=== PATIENT | female | born 1980 | race Caucasian/White ===

== ENCOUNTER 2016-12-28 16:54 | Inpatient (IN) | payer BC ==
[~2016-12-28] VITALS: Ht 162.6 cm; Wt 172.4 kg
[~2016-12-28 16:54] MED LIST: AMOX1TAB11 PO; FLUC100T7 PO; PRED-220 PO; PROAIR HFA8.5 GM INH; TRIA15CR3 TP
[2016-12-28] MEDS ORDERED: HYDROcodone/APAP 5/325MG 1 TAB TABLET PO ONE (17:45)
--- NOTE | 2016-12-28 19:13 | PHYS DOC ---
Past Medical History Past Medical History: Other Additional Past Medical Histor: LYMPHEDEMA (BILATERAL LOWER EXT), LIPIDEMA ( BILATERAL LOWER EXT) Past Surgical History: , Other Additional Past Surgical Histo: D&C, ANKLE Additional Information: quit smoking 12 years ago Alcohol Use: None Drug Use: None Adult General Chief Complaint Chief Complaint: WOUND CHECK [facility] Patient is a 36 year old female history of lymphedema who presents with increased leg swelling and weeping for the past several days. Patient was evaluated by her primary care physician this in 3 days prior to ED arrival. She states that since that time, her legs have continued to weep and that she is soaking through her gauze and has been been going through to 9 APD pads at time and that her legs are painful. Patient also notes that wounds are breaking open due to the ED. She is currently on doxycycline for prophylaxis. Patient gas history of leg cellulitis and has previously been admitted to this facility for sepsis related to leg wounds. She denies fever, chills, nausea, sweats. She is nondiabetic. Patient has been seen by the lymphedema clinic, Review of Systems Review of Systems ROS as per HPI Current Medications Current Medications Current Medications Medications (Trade) Dose Ordered Sig/Uvaldo Start Time Stop Time Status Last Admin Dose Admin Acetaminophen/ Hydrocodone Bitart (Lortab 5/325) 1 tab 1X ONCE 12/28/16 17:45 12/28/16 17:46 DC 12/28/16 18:11 1 TAB Fentanyl Citrate (Fentanyl 2ml Vial) 75 mcg 1X ONCE 12/28/16 19:30 12/28/16 19:31 DC 12/28/16 19:37 75 MCG Ondansetron HCl (Zofran) 4 mg 1X ONCE 12/28/16 19:30 12/28/16 19:31 DC 12/28/16 19:34 4 MG Allergies Allergies Allergies Coded Allergies Type Severity Reaction Last Updated Verified No Known Drug Allergies 04/05/15 No Physical Exam Physical Exam Constitutional: Well developed, well nourished, no acute distress, non-toxic appearance. [] HENT: Normocephalic, atraumatic, bilateral external ears normal, oropharynx moist, no oral exudates, nose normal. [] Eyes: PERRLA, EOMI, conjunctiva normal, no discharge. [] Neck: Normal range of motion, no tenderness, supple, no stridor. [] Cardiovascular:Heart rate regular rhythm, no murmur [] Lungs & Thorax: Bilateral breath sounds clear to auscultation [] Abdomen: Bowel sounds normal, soft, no tenderness, no masses, no pulsatile masses. [ Extremities: Severe lymphedema of B lower extremities with folds overlapping ankle, patient with serous weeping, multiple subcentimeter stasis wounds purulent drainage, induration or streaking. Left medial leg 2 cm stasis ulcer with surrounding erthyema. ] Neurologic: Alert and oriented X 3, normal motor function, normal sensory function, no focal deficits noted. [] Psychologic: Affect normal, judgement normal, mood normal. [] Current Patient Data Vital Signs Vital Signs Date Time Temp Pulse Resp B/P (MAP) Pulse Ox O2 Delivery O2 Flow Rate FiO2 12/28/16 19:37 19 100 Room Air 12/28/16 19:35 97 134/70 (91) 12/28/16 17:08 98.2 98.2 Lab Values Laboratory Tests Test 12/28/16 17:22 12/28/16 19:17 POC Urine HCG, Qualitative Hcg negative (Negative) White Blood Count 8.2 x10^3/uL (4.0-11.0) Red Blood Count 3.84 x10^6/uL (3.50-5.40) Hemoglobin 11.3 g/dL (12.0-15.5) L Hematocrit 33.1 % (36.0-47.0) L Mean Corpuscular Volume 86 fL (79-100) Mean Corpuscular Hemoglobin 30 pg (25-35) Mean Corpuscular Hemoglobin Concent 34 g/dL (31-37) Red Cell Distribution Width 14.3 % (11.5-14.5) Platelet Count 179 x10^3/uL (140-400) Neutrophils (%) (Auto) 65 % (31-73) Lymphocytes (%) (Auto) 25 % (24-48) Monocytes (%) (Auto) 7 % (0-9) Eosinophils (%) (Auto) 2 % (0-3) Basophils (%) (Auto) 1 % (0-3) Neutrophils # (Auto) 5.3 x10^3uL (1.8-7.7) Lymphocytes # (Auto) 2.0 x10^3/uL (1.0-4.8) Monocytes # (Auto) 0.6 x10^3/uL (0.0-1.1) Eosinophils # (Auto) 0.2 x10^3/uL (0.0-0.7) Basophils # (Auto) 0.1 x10^3/uL (0.0-0.2) Sodium Level 142 mmol/L (136-145) Potassium Level 4.1 mmol/L (3.5-5.1) Chloride Level 106 mmol/L (98-107) Carbon Dioxide Level 27 mmol/L (21-32) Anion Gap 9 (6-14) Blood Urea Nitrogen 15 mg/dL (7-20) Creatinine 1.1 mg/dL (0.6-1.0) H Estimated GFR (Cockcroft-Gault) 56.2 BUN/Creatinine Ratio 14 (6-20) Glucose Level 83 mg/dL (70-99) Calcium Level 8.4 mg/dL (8.5-10.1) L Total Bilirubin Pending Aspartate Amino Transferase (AST) Pending Alanine Aminotransferase (ALT) Pending Alkaline Phosphatase Pending C-Reactive Protein, Quantitative 20.4 mg/L (0-3.3) H Total Protein Pending Albumin Pending Albumin/Globulin Ratio Pending Laboratory Tests 12/28/16 19:17 Laboratory Tests 12/28/16 19:17 EKG EKG [] Radiology/Procedures Radiology/Procedures [] Course & Med Decision Making Course & Med Decision Making Pertinent Labs and Imaging studies reviewed. (See chart for details) [Chronic lymphedema with cellulitis and left leg venous stasis ulcer currently failed outpatient antibiotic. Vital signs stable, Normal WBC, Patient does not appear to be septic. Empiric abx given ] Dragon Disclaimer Dragon Disclaimer This electronic medical record was generated, in whole or in part, using a voice recognition dictation system. Departure Departure Impression: Primary Impression: Cellulitis Additional Impression: Lymph edema Disposition: 09 ADMITTED INPATIENT Admitting Physician: Jack Fierro Condition: GOOD Referrals: HARMONY SAMUEL MD (PCP) Problem Qualifiers NEALJACQUES FINCH Dec 28, 2016 19:13
[2016-12-28 19:24] LABS: BASO # 0.1 x10^3/uL (0.0-0.2); BASO % 1 % (0-3); EOS % 2 % (0-3); HEMATOCRIT 33.1 % (36.0-47.0); HEMOGLOBIN 11.3 g/dL (12.0-15.5); LYMPH % 25 % (24-48); MEAN CORPUSCULAR HEMOGLOBIN 30 pg (25-35); MEAN CORPUSCULAR HGB CONC 34 g/dL (31-37); MEAN CORPUSCULAR VOLUME 86 fL (79-100); MONO % 7 % (0-9); NEUT % 65 % (31-73); PLATELET COUNT 179 x10^3/uL (140-400); RED BLOOD COUNT 3.84 x10^6/uL (3.50-5.40); RED CELL DISTRIBUTION WIDTH 14.3 % (11.5-14.5); WHITE BLOOD COUNT 8.2 x10^3/uL (4.0-11.0)
[2016-12-28] MEDS ORDERED: ONDANSETRON PF 4 MG/2 ML VIAL. IV ONE (19:30)
[2016-12-28] MEDS ORDERED: fentaNYL PF VIAL 100 MCG/2 ML VIAL IV ONE (19:30)
[2016-12-28 19:38] LABS: CALCIUM 8.4 mg/dL (8.5-10.1); CREATININE 1.1 mg/dL (0.6-1.0); GFR 56.2; POTASSIUM 4.1 mmol/L (3.5-5.1)
[2016-12-28 19:44] LABS: ALBUMIN 3.7 g/dL (3.4-5.0); ALBUMIN/GLOBULIN RATIO 0.9 (1.0-1.7); TOTAL BILIRUBIN 0.8 mg/dL (0.2-1.0); TOTAL PROTEIN 7.7 g/dL (6.4-8.2)
[2016-12-28] MEDS ORDERED: VANCOMYCIN 2 GM in IV NORMAL SALINE 500ML BAG 500 ML IV ONE (20:00)
[2016-12-28] MEDS ORDERED: VANCOMYCIN 1GM IVPB FOR OMNI 250 ML IV ONE (20:00)
[2016-12-28 22:45] VITALS: BP 109/66
[2016-12-28] MEDS ORDERED: ACETAMINOPHEN 325 MG TABLET. PO PRN (23:00)
[2016-12-28] MEDS: diphenhydrAMINE HCL 25 MG CAPSULE PO PRN (23:14)
[2016-12-28] MEDS: MORPHINE SULFATE 2 MG/ML DISP.SYRIN. IV PRN (23:17)
[2016-12-28] MEDS ORDERED: INFLUENZA VAX SCREEN BY RX. MC ONE (23:45)
[2016-12-28] MEDS ORDERED: PNEUMOCOCCAL VAX SCREEN BY RX. MC ONE (23:45)
[2016-12-29 03:00] VITALS: BP 107/58
[2016-12-29] MEDS: MORPHINE SULFATE 2 MG/ML DISP.SYRIN. IV PRN (04:21)
[2016-12-29 07:00] VITALS: BP 102/62
[2016-12-29] MEDS: VANCOMYCIN PER PHARMACY MC PRN ×2 (08:57→14:32)
--- NOTE | 2016-12-29 08:58 | PDOC1 ---
History and Physical Date of Admission Date of Admission DATE: 12/29/16 TIME: 08:58 Source Source: Chart review, Patient History of Present Illness History of Present Illness Ms. Harrington is a 36 year old female history of lymphedema who presents with increased leg swelling and weeping for the past several days. Severe 10/ 10 pain with any movment to the left leg, leg is swollen to over 12 inches across above ankle, she reports it measured 70cm circumference. She has 1 week of pain and swelling, was started on PO doxy 2 days prior, mult complaints of pain, pressure pain, but also stabbing pain, "feels deep" she has been unable to wrap due to swelling leg has new excoriations and has been weeping Past Medical History Cardiovascular: No pertinent hx Pulmonary: Asthma GI: No pertinent hx Heme/Onc: No pertinent hx Hepatobiliary: No pertinent hx Psych: No pertinent hx Infectious disease: No pertinent hx Renal/: No pertinent hx Endocrine: No pertinent hx Para: 4 Past Surgical History Past Surgical History: Other (ankle fracture, left with implanted hardware) Family History Family History single parent, is incarcerated, she has 2 jobs Family History: No Significant Social History Smoke: No ALCOHOL: none Drugs: None Current Problem List Problem List Problems Medical Problems: (1) Cellulitis Status: Acute (2) Lymph edema Status: Acute Problems: Current Medications Current Medications Current Medications Acetaminophen/ Hydrocodone Bitart (Lortab 5/325) 1 tab 1X ONCE PO Last administered on 12/28/16 18:11; Start 12/28/16 at 17:45; Stop 12/28/16 at 17:46 ; Status DC Fentanyl Citrate (Fentanyl 2ml Vial) 75 mcg 1X ONCE IV Last administered on 19:37; Start 12/28/16 at 19:30; Stop 12/28/16 at 19:31; Status DC Ondansetron HCl (Zofran) 4 mg 1X ONCE IV Last administered on 12/28/16 19:34 ; Start 12/28/16 at 19:30; Stop 12/28/16 at 19:31; Status DC Vancomycin HCl 250 ml @ 250 mls/hr 1X ONCE IV ; Start 12/28/16 at 20:00; Stop 12/28/16 at 20:59; Status UNV Vancomycin HCl 2 gm/Sodium Chloride 500 ml @ 250 mls/hr 1X ONCE IV Last administered on 12/28/16 20:17; Start 12/28/16 at 20:00; Stop 12/28/16 at 21:59 ; Status DC Acetaminophen/ Hydrocodone Bitart (Lortab 5/325) 1 tab PRN Q4HRS PRN PO PAIN; Start 12/28/16 at 23:00 Morphine Sulfate 2 mg PRN Q4HRS PRN IV PAIN Last administered on 12/29/16 04: 21; Start 12/28/16 at 23:00 Morphine Sulfate 4 mg PRN Q4HRS PRN IV PAIN; Start 12/28/16 at 23:00 Acetaminophen (Tylenol) 650 mg PRN Q6HRS PRN PO MILD PAIN / TEMP; Start at 23:00 Ondansetron HCl (Zofran) 4 mg PRN Q6HRS PRN IV NAUSEA/VOMITING; Start 12/28/16 at 23:00 Diphenhydramine HCl (Benadryl) 25 mg PRN Q6HRS PRN PO ITCHING Last administered on 12/28/16 23:14; Start 12/28/16 at 23:00 Info (Do NOT chart on this placeholder) 1 each 1X ONCE MC ; Start 12/28/16 at 23:45; Stop 12/28/16 at 23:46; Status UNV Pneumococcal Polyvalent Vaccine (Do NOT chart on this placeholder) 1 each 1X ONCE MC ; Start 12/28/16 at 23:45; Stop 12/28/16 at 23:46; Status UNV Influenza Virus Vaccine Quadrival (Fluarix Quad [id number] Syringe) 0.5 ml ONCE ONCE VAX IM ; Start 12/29/16 at 09:00; Stop 12/29/16 at 09:01 Pneumococcal Polyvalent Vaccine (Pneumovax 23) 0.5 ml ONCE ONCE VAX IM ; Start 12/29/16 at 09:00; Stop 12/29/16 at 09:01 Active Scripts Active Reported Proair Hfa Inhaler (Albuterol Sulfate) 8.5 Gm Hfa.aer.ad 1 Puff INH PRN Q6HRS PRN Allergies Allergies: Coded Allergies: No Known Drug Allergies (Unverified , 04/05/15) ROS General: YES: Fatigue, Appetite, No: Chills, Night Sweats, Malaise, Other PSYCHOLOGICAL ROS: YES: Sleep disturbances, No: Anxiety, Behavioral Disorder, Concentration difficultie, Decreased libido , Depression, Disorientation, Hallucinations, Hostility, Irritablity, Memory difficulties, Mood Swings, Obsessive thoughts, Other Eyes: No Blurry vision, No Decreased vision, No Double vision, No Dry eyes, No Excessive tearing, No Eye Pain, No Itchy Eyes, No Loss of vision, No Photophobia , No Scotomata, No Uses contacts, No Uses glasses, No Other HEENT: YES: Heacaches, No: Visual Changes, Hearing change, Nasal congestion, Nasal discharge, Oral lesions, Sinus pain, Sore Throat, Epistaxis, Sneezing, Snoring, Tinnitus, Vertigo, Vocal changes, Other Gastrointestinal: No Nausea, No Vomiting, No Abdominal Pain, No Diarrhea, No Constipation, No Melena, No Hematochezia, No Other Genitourinary: No Dysuria, No Frequency, No Incontinence, No Hematuria, No Retention, No Discharge, No Urgency, No Pain, No Flank Pain, No Other, No , No , No , No , No , No , No Musculoskeletal: Yes Gait Disturbance, Yes Joint Pain, Yes Joint Stiffness, Yes Joint Swelling Neurological: Yes Headaches, No Behavorial Changes, No Bowel/Bladder ControlChng, No Confusion, No Dizziness, No Gait Disturbance, No Impaired Coord/balance, No Memory Loss, No Numbness/Tingling, No Seizures, No Weakness, No Other Skin: No Dry Skin, No Eczema, No Hair Changes, No Lumps, No Mole Changes, No Mottling, No Nail Changes, No Pruritus, No Rash, No Skin Lesion Changes, No Other, No Acne Physical Exam General: Alert, Oriented X3, Cooperative HEENT: Atraumatic, EOMI Heart: S1S2, no gallops, no murmurs Abdomen: Normal bowel sounds, Soft Rectal Exam: deferred Extremities: Other (massive lymphedema, left, with redness, very tender) Skin: Other (redness, rash, excoriations over swelling) Neuro: Normal speech, Normal tone, Sensation intact Psych/Mental Status: Mood NL Vitals Vitals Vital Signs Date Time Temp Pulse Resp B/P (MAP) Pulse Ox O2 Delivery O2 Flow Rate FiO2 12/29/16 07:00 98.2 84 18 102/62 (75) 96 Room Air 98.2 Labs Labs Laboratory Tests Test 12/28/16 17:22 12/28/16 19:17 Bedside Urine HCG, Qualitative Hcg negative (Negative) White Blood Count 8.2 x10^3/uL (4.0-11.0) Red Blood Count 3.84 x10^6/uL (3.50-5.40) Hemoglobin 11.3 g/dL (12.0-15.5) Hematocrit 33.1 % (36.0-47.0) Mean Corpuscular Volume 86 fL (79-100) Mean Corpuscular Hemoglobin 30 pg (25-35) Mean Corpuscular Hemoglobin Concent 34 g/dL (31-37) Red Cell Distribution Width 14.3 % (11.5-14.5) Platelet Count 179 x10^3/uL (140-400) Neutrophils (%) (Auto) 65 % (31-73) Lymphocytes (%) (Auto) 25 % (24-48) Monocytes (%) (Auto) 7 % (0-9) Eosinophils (%) (Auto) 2 % (0-3) Basophils (%) (Auto) 1 % (0-3) Neutrophils # (Auto) 5.3 x10^3uL (1.8-7.7) Lymphocytes # (Auto) 2.0 x10^3/uL (1.0-4.8) Monocytes # (Auto) 0.6 x10^3/uL (0.0-1.1) Eosinophils # (Auto) 0.2 x10^3/uL (0.0-0.7) Basophils # (Auto) 0.1 x10^3/uL (0.0-0.2) Sodium Level 142 mmol/L (136-145) Potassium Level 4.1 mmol/L (3.5-5.1) Chloride Level 106 mmol/L (98-107) Carbon Dioxide Level 27 mmol/L (21-32) Anion Gap 9 (6-14) Blood Urea Nitrogen 15 mg/dL (7-20) Creatinine 1.1 mg/dL (0.6-1.0) Estimated GFR (Cockcroft-Gault) 56.2 BUN/Creatinine Ratio 14 (6-20) Glucose Level 83 mg/dL (70-99) Lactic Acid Level 1.7 mmol/L (0.4-2.0) Calcium Level 8.4 mg/dL (8.5-10.1) Total Bilirubin 0.8 mg/dL (0.2-1.0) Aspartate Amino Transf (AST/SGOT) 17 U/L (15-37) Alanine Aminotransferase (ALT/SGPT) 17 U/L (14-59) Alkaline Phosphatase 72 U/L (46-116) C-Reactive Protein, Quantitative 20.4 mg/L (0-3.3) Total Protein 7.7 g/dL (6.4-8.2) Albumin 3.7 g/dL (3.4-5.0) Albumin/Globulin Ratio 0.9 (1.0-1.7) Laboratory Tests Test 12/28/16 17:22 12/28/16 19:17 Bedside Urine HCG, Qualitative Hcg negative (Negative) White Blood Count 8.2 x10^3/uL (4.0-11.0) Red Blood Count 3.84 x10^6/uL (3.50-5.40) Hemoglobin 11.3 g/dL (12.0-15.5) Hematocrit 33.1 % (36.0-47.0) Mean Corpuscular Volume 86 fL (79-100) Mean Corpuscular Hemoglobin 30 pg (25-35) Mean Corpuscular Hemoglobin Concent 34 g/dL (31-37) Red Cell Distribution Width 14.3 % (11.5-14.5) Platelet Count 179 x10^3/uL (140-400) Neutrophils (%) (Auto) 65 % (31-73) Lymphocytes (%) (Auto) 25 % (24-48) Monocytes (%) (Auto) 7 % (0-9) Eosinophils (%) (Auto) 2 % (0-3) Basophils (%) (Auto) 1 % (0-3) Neutrophils # (Auto) 5.3 x10^3uL (1.8-7.7) Lymphocytes # (Auto) 2.0 x10^3/uL (1.0-4.8) Monocytes # (Auto) 0.6 x10^3/uL (0.0-1.1) Eosinophils # (Auto) 0.2 x10^3/uL (0.0-0.7) Basophils # (Auto) 0.1 x10^3/uL (0.0-0.2) Sodium Level 142 mmol/L (136-145) Potassium Level 4.1 mmol/L (3.5-5.1) Chloride Level 106 mmol/L (98-107) Carbon Dioxide Level 27 mmol/L (21-32) Anion Gap 9 (6-14) Blood Urea Nitrogen 15 mg/dL (7-20) Creatinine 1.1 mg/dL (0.6-1.0) Estimated GFR (Cockcroft-Gault) 56.2 BUN/Creatinine Ratio 14 (6-20) Glucose Level 83 mg/dL (70-99) Lactic Acid Level 1.7 mmol/L (0.4-2.0) Calcium Level 8.4 mg/dL (8.5-10.1) Total Bilirubin 0.8 mg/dL (0.2-1.0) Aspartate Amino Transf (AST/SGOT) 17 U/L (15-37) Alanine Aminotransferase (ALT/SGPT) 17 U/L (14-59) Alkaline Phosphatase 72 U/L (46-116) C-Reactive Protein, Quantitative 20.4 mg/L (0-3.3) Total Protein 7.7 g/dL (6.4-8.2) Albumin 3.7 g/dL (3.4-5.0) Albumin/Globulin Ratio 0.9 (1.0-1.7) VTE Prophylaxis Ordered VTE Prophylaxis Devices: Contraindicated VTE Pharmacological Prophylaxi: Yes Assessment/Plan Assessment/Plan cellulitis on lymphedema, left leg with severe pain, pain 10/10, unable to transfer, pain, not sepsis, tachycardia likely due to pain morbid obesity, BMI 65, but that may be 40+ lbs water in her legs, CKD 2-3, recheck labs admit MILADYS ESPINOZA MD Dec 29, 2016 08:58
[2016-12-29] MEDS ORDERED: PNEUMOC CONJ VACC 23-VALENT 0.5 ML VIAL. VAX IM ONE (09:00)
[2016-12-29] MEDS ORDERED: FLU VACC QS2017-18 (36MOS+)/PF 0.5 ML SYRINGE. VAX IM ONE (09:00)
[2016-12-29] MEDS ORDERED: ALBUTEROL SULFATE 2.5 MG/3 ML NEBU. NEB PRN (09:00)
[2016-12-29] MEDS ORDERED: NON FORMULARY ITEM (Albuterol Sulfate (Proair Hfa Inhaler) 1 PUFF) INH PRN (09:00)
[2016-12-29] MEDS ORDERED: VANCOMYCIN 2 GM in IV NORMAL SALINE 500ML BAG 500 ML IV SCH (09:00)
[2016-12-29] MEDS ORDERED: ZOLPIDEM 5 MG TABLET. PO PRN (09:00)
[2016-12-29] MEDS: HYDROcodone/APAP 5/325MG 1 TAB TABLET PO PRN ×4 (09:05→23:37)
[2016-12-29] MEDS: DOCUSATE SODIUM 100 MG CAPSULE. PO SCH (09:15)
[2016-12-29 10:50] VITALS: BP 102/69
[2016-12-29 15:00] VITALS: BP 115/69
[2016-12-29] MEDS ORDERED: DIPHTH,PERTUSS(ACELL),TET TOX 0.5 ML DISP.SYRIN. VAX IM ONE (17:30)
[2016-12-29 19:00] VITALS: BP 117/70
[2016-12-29] MEDS: VANCOMYCIN 2 GM in IV NORMAL SALINE 500ML BAG 500 ML IV SCH (20:43)
[2016-12-29] MEDS: MORPHINE SULFATE 4 MG/ML DISP.SYRIN. IV PRN (20:46)
--- NOTE | 2016-12-29 21:52 | CONS ---
DATE OF CONSULTATION: 12/29/2016 HISTORY OF PRESENT ILLNESS: The patient is a 36-year-old female with past medical history of bilateral lower extremity lymphedema in the setting of obesity who presents for the second or third time with cellulitis of both legs. The worst symptoms she noted have been on the right side. It is extremely painful and she rated her pain at 10/10 and the redness was extending up towards the knee. She is not sure exactly what caused it. She denies any evidence of trauma. She had been on doxycycline at home, but this did not reveal the pain. She has some wraps that she uses for lymphedema, but the leg has been extremely painful and therefore she has not been able to do the wraps. She notes that she has been having more recurrent exacerbations of cellulitis in both extremities and wants to do something to stop it from happening again. ID is consulted to assist with antibiotic management. She does not recall when she last had a tetanus shot, although she describes for me a PPD. 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 PAST SURGICAL HISTORY: She had trauma to her ankle and underwent open reduction and internal fixation. She has hardware still in that ankle. 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 She does not smoke or take alcohol and she denies any history of drug abuse. FAMILY HISTORY: Noncontributory. Her mother is sitting at bedside. REVIEW OF SYSTEMS: Essentially negative on a 10-point review of systems except for pain in the lower extremities. She has had some pain medications and this has gone down markedly. PHYSICAL EXAMINATION: VITAL SIGNS: Temperature is 98.1, pulse rate is 87, respiratory rate is 18, blood pressure 102/69, SpO2 is 95%. GENERAL: She is a pleasant young female in no apparent distress at rest. She is, however, very anxious about the cellulitis of her lower extremities. HEENT: Eyes, nose, mouth and throat are unremarkable. NECK: Supple, with no JVD, carotid bruits or thyromegaly. CHEST: Has equal excursion bilaterally. Chest wall is normal. LUNGS: Clear to auscultation bilaterally. There are no crackles or rhonchi. ABDOMEN: Obese, soft, nontender with no masses or hepatosplenomegaly. CARDIAC: Reveals S1 and S2, which are regular. She has no murmurs. SKIN: Otherwise warm and dry with no rashes except in the lower extremities where there is a symmetrical lymphedema of both lower extremities, the right being much greater than the left. Most of the swelling is just above the ankle and it seems to be filled with fluid. There is redness that is ascending towards her knee. There is also honey-colored crust like exudate dried on her legs suggestive of impetigo. The skin is very tender to the touch. The whole leg is very warm. She has no popliteal or inguinal adenopathy palpated. EXTREMITIES: Otherwise reveal no cyanosis or clubbing and she has adequate pulses. NEUROLOGICAL: She is alert, awake, oriented. No gross focal neurological deficits are observed. LABORATORY DATA: Show hemoglobin of 11.3, hematocrit of 33.1, white cell count of 8.2, platelet count of 179. ASSESSMENT: In summary, this is a 36-year-old morbidly obese young lady with: 1. Cellulitis of the left lower extremity. 2. Impetiginous infection of the left lower extremity. 3. Likely streptococcal. 4. Hyperesthesia and severe leg pain of the left lower extremity. 5. Tachycardia. 6. Morbid obesity. 7. Chronic kidney disease. PLAN: The patient has been started on vancomycin. I have requested cultures of the yellowish exudate. I suspect that it will either be a Staph or a strep. The patient accepts to get a Tdap vaccine. She has also received a flu vaccine. She does have a history of MRSA in the past, although it is subjective. We will go ahead and continue the vancomycin until she is better. If this patient streptococci, she may benefit from chronic suppression with simple antibiotic like cephalexin; however, she needs to be healed of the acute episode for now before chronic suppression is introduced. Thank you for consulting. We will continue following this lady with you. VERONIKA KENNY MD DR: ANAHI/silvestre JOB#: [id number] / [id number]
[2016-12-29 23:00] VITALS: BP 114/70
[2016-12-30 03:00] VITALS: BP 113/68
[2016-12-30 07:00] VITALS: BP 123/81
[2016-12-30] MEDS: DOCUSATE SODIUM 100 MG CAPSULE. PO SCH (09:09)
[2016-12-30] MEDS: HYDROcodone/APAP 5/325MG 1 TAB TABLET PO PRN (09:09)
[2016-12-30] MEDS: POLYETHYLENE GLYCOL 3350 17 GM PACKET. PO SCH (10:00)
[2016-12-30] MEDS: VANCOMYCIN 2 GM in IV NORMAL SALINE 500ML BAG 500 ML IV SCH ×2 (10:00→21:16)
[2016-12-30 11:00] VITALS: BP 126/79
[2016-12-30] MEDS: VANCOMYCIN PER PHARMACY MC PRN (11:01)
[2016-12-30] MEDS: MORPHINE SULFATE 4 MG/ML DISP.SYRIN. IV PRN ×3 (11:04→23:20)
--- NOTE | 2016-12-30 11:08 | PDOC ---
PROGRESS NOTES Chief Complaint Chief Complaint cellulitis on lymphedema, left leg with severe pain, pain 8/10, morbid obesity, BMI 65, CKD 2-3, History of Present Illness History of Present Illness pain a little better, able to transfer eating OK no stools Vitals Vitals Vital Signs Date Time Temp Pulse Resp B/P (MAP) Pulse Ox O2 Delivery O2 Flow Rate FiO2 12/30/16 11:04 20 Room Air 12/30/16 07:00 97.8 87 123/81 (95) 95 97.8 Physical Exam General: Alert, Oriented X3, Cooperative, mild distress Heart: Other Lungs: Clear Abdomen: Normal bowel sounds, Soft Extremities: Other (massive lymphedema, left, with redness, very tender) Skin: Other (redness, rash, excoriations over swelling) Labs LABS Laboratory Tests Test 12/30/16 09:33 Vancomycin Level Trough 14.1 mcg/mL (10.0-20.0) Vancomycin Last Dose Date 12/30/16 Vancomycin Last Dose Time 0100 Assessment and Plan Assessmemt and Plan Problems Medical Problems: (1) Cellulitis Status: Acute (2) Lymph edema Status: Acute Problems: Comment Review of Relevant I have reviewed the following items ankush (where applicable) has been applied. Labs Laboratory Tests Test 12/28/16 17:22 12/28/16 19:17 12/30/16 09:33 Bedside Urine HCG, Qualitative Hcg negative (Negative) White Blood Count 8.2 x10^3/uL (4.0-11.0) Red Blood Count 3.84 x10^6/uL (3.50-5.40) Hemoglobin 11.3 g/dL (12.0-15.5) Hematocrit 33.1 % (36.0-47.0) Mean Corpuscular Volume 86 fL (79-100) Mean Corpuscular Hemoglobin 30 pg (25-35) Mean Corpuscular Hemoglobin Concent 34 g/dL (31-37) Red Cell Distribution Width 14.3 % (11.5-14.5) Platelet Count 179 x10^3/uL (140-400) Neutrophils (%) (Auto) 65 % (31-73) Lymphocytes (%) (Auto) 25 % (24-48) Monocytes (%) (Auto) 7 % (0-9) Eosinophils (%) (Auto) 2 % (0-3) Basophils (%) (Auto) 1 % (0-3) Neutrophils # (Auto) 5.3 x10^3uL (1.8-7.7) Lymphocytes # (Auto) 2.0 x10^3/uL (1.0-4.8) Monocytes # (Auto) 0.6 x10^3/uL (0.0-1.1) Eosinophils # (Auto) 0.2 x10^3/uL (0.0-0.7) Basophils # (Auto) 0.1 x10^3/uL (0.0-0.2) Sodium Level 142 mmol/L (136-145) Potassium Level 4.1 mmol/L (3.5-5.1) Chloride Level 106 mmol/L (98-107) Carbon Dioxide Level 27 mmol/L (21-32) Anion Gap 9 (6-14) Blood Urea Nitrogen 15 mg/dL (7-20) Creatinine 1.1 mg/dL (0.6-1.0) Estimated GFR (Cockcroft-Gault) 56.2 BUN/Creatinine Ratio 14 (6-20) Glucose Level 83 mg/dL (70-99) Lactic Acid Level 1.7 mmol/L (0.4-2.0) Calcium Level 8.4 mg/dL (8.5-10.1) Total Bilirubin 0.8 mg/dL (0.2-1.0) Aspartate Amino Transf (AST/SGOT) 17 U/L (15-37) Alanine Aminotransferase (ALT/SGPT) 17 U/L (14-59) Alkaline Phosphatase 72 U/L (46-116) C-Reactive Protein, Quantitative 20.4 mg/L (0-3.3) Total Protein 7.7 g/dL (6.4-8.2) Albumin 3.7 g/dL (3.4-5.0) Albumin/Globulin Ratio 0.9 (1.0-1.7) Vancomycin Level Trough 14.1 mcg/mL (10.0-20.0) Vancomycin Last Dose Date 12/30/16 Vancomycin Last Dose Time 99 Laboratory Tests Test 12/30/16 09:33 Vancomycin Level Trough 14.1 mcg/mL (10.0-20.0) Vancomycin Last Dose Date 12/30/16 Vancomycin Last Dose Time 0100 Microbiology 12/28/16 Blood Culture - Preliminary, Resulted NO GROWTH AFTER 1 DAY 12/29/16 Gram Stain - Final, Complete Medications Current Medications Acetaminophen/ Hydrocodone Bitart (Lortab 5/325) 1 tab 1X ONCE PO Last administered on 12/28/16 18:11; Start 12/28/16 at 17:45; Stop 12/28/16 at 17:46 ; Status DC Fentanyl Citrate (Fentanyl 2ml Vial) 75 mcg 1X ONCE IV Last administered on 19:37; Start 12/28/16 at 19:30; Stop 12/28/16 at 19:31; Status DC Ondansetron HCl (Zofran) 4 mg 1X ONCE IV Last administered on 12/28/16 19:34 ; Start 12/28/16 at 19:30; Stop 12/28/16 at 19:31; Status DC Vancomycin HCl 250 ml @ 250 mls/hr 1X ONCE IV ; Start 12/28/16 at 20:00; Stop 12/28/16 at 20:59; Status UNV Vancomycin HCl 2 gm/Sodium Chloride 500 ml @ 250 mls/hr 1X ONCE IV Last administered on 12/28/16 20:17; Start 12/28/16 at 20:00; Stop 12/28/16 at 21:59 ; Status DC Acetaminophen/ Hydrocodone Bitart (Lortab 5/325) 1 tab PRN Q4HRS PRN PO PAIN Last administered on 12/30/16 09:09; Start 12/28/16 at 23:00; Stop 12/30/16 at 09:43; Status DC Morphine Sulfate 2 mg PRN Q4HRS PRN IV PAIN Last administered on 12/29/16 04: 21; Start 12/28/16 at 23:00; Stop 12/30/16 at 09:43; Status DC Morphine Sulfate 4 mg PRN Q4HRS PRN IV PAIN Last administered on 12/30/16 11: 04; Start 12/28/16 at 23:00 Acetaminophen (Tylenol) 650 mg PRN Q6HRS PRN PO MILD PAIN / TEMP; Start at 23:00 Ondansetron HCl (Zofran) 4 mg PRN Q6HRS PRN IV NAUSEA/VOMITING; Start 12/28/16 at 23:00 Diphenhydramine HCl (Benadryl) 25 mg PRN Q6HRS PRN PO ITCHING Last administered on 12/28/16 23:14; Start 12/28/16 at 23:00 Info (Do NOT chart on this placeholder) 1 each 1X ONCE MC ; Start 12/28/16 at 23:45; Stop 12/28/16 at 23:46; Status UNV Pneumococcal Polyvalent Vaccine (Do NOT chart on this placeholder) 1 each 1X ONCE MC ; Start 12/28/16 at 23:45; Stop 12/28/16 at 23:46; Status UNV Influenza Virus Vaccine Quadrival (Fluarix Quad [id number] Syringe) 0.5 ml ONCE ONCE VAX IM Last administered on 12/29/16 09:08; Start 12/29/16 at 09:00; Stop 12/29/16 at 09:01; Status DC Pneumococcal Polyvalent Vaccine (Pneumovax 23) 0.5 ml ONCE ONCE VAX IM Last administered on 12/29/16 09:07; Start 12/29/16 at 09:00; Stop 12/29/16 at 09:01 ; Status DC Vancomycin HCl (Vanco Per Pharmacy) 1 each PRN DAILY PRN MC SEE COMMENTS Last administered on 12/30/16 11:01; Start 12/29/16 at 08:45 Non-Formulary Medication 1 puff PRN Q6HRS PRN INH SHORTNESS OF BREATH; Start at 09:00; Status UNV Zolpidem Tartrate (Ambien) 5 mg PRN QHS PRN PO INSOMNIA; Start 12/29/16 at 09: 00 Docusate Sodium (Colace) 100 mg DAILY PO Last administered on 12/30/16 09:09; Start 12/29/16 at 09:00 Albuterol Sulfate (Ventolin Neb Soln) 2.5 mg PRN Q6HRS PRN NEB SHORTNESS OF BREATH; Start 12/29/16 at 09:00 Vancomycin HCl 2 gm/Sodium Chloride 500 ml @ 250 mls/hr Q8H IV Last administered on 12/29/16 10:15; Start 12/29/16 at 09:00; Stop 12/29/16 at 12:00 ; Status DC Vancomycin HCl 1 each 1X ONCE MC ; Start 12/30/16 at 10:00; Stop 12/30/16 at 10 :01; Status DC Vancomycin HCl 2 gm/Sodium Chloride 500 ml @ 250 mls/hr Q12H IV Last administered on 12/29/16 20:43; Start 12/29/16 at 22:00 Enoxaparin Sodium (Lovenox Per Pharmacy Prophylaxis Dosing) 1 each PRN DAILY PRN MC SEE COMMENTS; Start 12/29/16 at 10:30 Enoxaparin Sodium (Lovenox 60mg Syringe) 60 mg Q12HR SQ Last administered on 09:09; Start 12/29/16 at 11:00 Diphtheria/ Tetanus/Acell Pertussis (Boostrix) 0.5 ml ONCE ONCE VAX IM Last administered on 12/29/16 18:19; Start 12/29/16 at 17:30; Stop 12/29/16 at 17:37 ; Status DC Acetaminophen/ Hydrocodone Bitart (Lortab 10/325) 1 tab PRN Q4HRS PRN PO PAIN; Start 12/30/16 at 09:45 Polyethylene Glycol (miraLAX PACKET) 17 gm DAILY PO ; Start 12/30/16 at 10:00 Active Scripts Active Reported Proair Hfa Inhaler (Albuterol Sulfate) 8.5 Gm Hfa.aer.ad 1 Puff INH PRN Q6HRS PRN Vitals/I & O Vital Sign - Last 24 Hours 12/29/16 12/29/16 12/29/16 12/29/16 12:46 13:41 15:00 15:26 Temp 98.1 98.1 Pulse 87 Resp 18 18 20 B/P (MAP) 115/69 (84) Pulse Ox 95 95 90 O2 Delivery Room Air Room Air Room Air 12/29/16 12/29/16 12/29/16 12/29/16 18:20 19:00 19:56 20:46 Temp 98.9 98.9 Pulse 74 Resp 22 18 B/P (MAP) 117/70 (86) Pulse Ox 100 90 O2 Delivery Room Air Room Air Room Air Room Air 12/29/16 12/29/16 12/29/16 12/30/16 21:16 23:00 23:37 00:37 Temp 98.2 98.2 Pulse 86 Resp 16 B/P (MAP) 114/70 (85) Pulse Ox 90 94 94 94 O2 Delivery Room Air Room Air Room Air Room Air 12/30/16 12/30/16 12/30/16 12/30/16 03:00 07:00 08:00 09:09 Temp 97.9 97.8 97.9 97.8 Pulse 66 87 Resp 16 20 20 B/P (MAP) 113/68 (83) 123/81 (95) Pulse Ox 98 95 O2 Delivery Room Air Room Air Room Air Room Air 12/30/16 11:04 Resp 20 O2 Delivery Room Air Intake and Output 12/30/16 12/30/16 12/31/16 15:00 23:00 07:00 Intake Total 300 ml Balance 300 ml MILADYS ESPINOZA MD Dec 30, 2016 11:08
[2016-12-30 14:59] VITALS: BP 127/80
--- NOTE | 2016-12-30 15:07 | PDOC ---
Infectious Disease Note Subjective Subjective c/o left lower leg pain and drainage. Walking in [place] earlier ROS ROS GEN: Denies fevers, chills, sweats CV: Denies chest pain RESP: Denies shortness of air, cough GI: Denies n/v/d Vital Sign Vital Signs Vital Signs Date Time Temp Pulse Resp B/P (MAP) Pulse Ox O2 Delivery O2 Flow Rate FiO2 12/30/16 11:51 18 Room Air 12/30/16 11:00 97.8 85 126/79 (95) 95 97.8 Physical Exam PHYSICAL EXAM GENERAL: NAD, Alert HEENT: PERRL, OC/OP NECK: Supple, no JVD, no LN LUNGS: Clear HEART: S1S2, no gallop, no murmur ABD: Soft, NT, no organomegaly, no rebound EXT: No edema, no cyanosis RECORDS CLERK: Alert, oriented x 3, no focal neurologic deficit SKIN: No rash IV: ok Labs Lab Laboratory Tests Test 12/30/16 09:33 Vancomycin Level Trough 14.1 mcg/mL (10.0-20.0) Vancomycin Last Dose Date 12/30/16 Vancomycin Last Dose Time 0100 Micro BLOOD CULTURE Preliminary NO GROWTH AFTER 1 DAY GRAM STAIN Final WBCS NONE SEEN RBCS FEW ORGANISMS NONE SEEN Objective Assessment Cellulitis of the left lower extremity. Impetiginous infection of the left lower extremity. Likely streptococcal. Hyperesthesia and severe leg pain of the left lower extremity. Tachycardia. Morbid obesity. Chronic kidney disease Plan Plan of Care vanc f/u cultures leg elevation Patient seen and examined. Chart reviewed in detail. Case discussed with INSOLE AND OUTSOLE PREPARER. Agree with above plan. ANU SUMMERS APRN Dec 30, 2016 15:07 VERONIKA KENNY MD Dec 30, 2016 21:14
[2016-12-30] MEDS: HYDROcodone/APAP 10/325 1 TAB TABLET PO PRN ×2 (16:45→21:08)
[2016-12-30 19:00] VITALS: BP 111/72
[2016-12-30 23:00] VITALS: BP 117/65
[2016-12-31] VITALS (7 sets, daily range): BP systolic 108–139; BP diastolic 62–77
[2016-12-31] MEDS: MORPHINE SULFATE 4 MG/ML DISP.SYRIN. IV PRN ×2 (06:22→11:11)
--- NOTE | 2016-12-31 07:59 | CONS ---
DATE OF CONSULTATION: 12/31/2016 DATE OF SERVICE: 12/31/2016 CHIEF COMPLAINT: Lower extremity swelling. HISTORY OF PRESENT ILLNESS: The patient is a 36-year-old female with long history of lymphedema. She has been treated with compression wraps for many years. She has had worsening swelling and new areas of skin breakdown on her left leg. She presents for further evaluation. PAST MEDICAL HISTORY: Severe lymphedema. PAST SURGICAL HISTORY: ORIF of the left ankle. CURRENT MEDICATIONS: Vancomycin, Lovenox, MiraLax, Colace. ALLERGIES: No known drug allergies. SOCIAL HISTORY: She denies any smoking or alcohol use. She works in a school many hours a day. FAMILY HISTORY: No family history of lymphedema. REVIEW OF SYSTEMS: No recent fevers, chills, chest pain or shortness of breath. She has had worsening leg swelling and redness and ulcers as noted above. No nausea, vomiting, diarrhea, constipation, hematochezia, melena or other GI symptoms. No unilateral weakness, numbness, visual loss or speech changes to suggest TIA or stroke-type symptoms. She has gained weight recently. She is uncertain how much is related to water or actually due to actual weight gain. PHYSICAL EXAMINATION: GENERAL: This is a morbidly obese female in mild discomfort. VITAL SIGNS: Temperature 98.2, pulse 81, blood pressure 124/75, respirations 18. NECK: Supple, no lymphadenopathy. CARDIOVASCULAR: Regular rhythm. ABDOMEN: Morbidly obese. No focal areas of tenderness. EXTREMITIES: She has palpable radial and dorsalis pedis pulses bilaterally. She has severe lymphedema in both legs, left worse than right. She has some mild erythema of her left lower leg, swelling as well as some superficial areas of ulceration. LABORATORY DATA: Significant for white blood cell 8.2, hemoglobin 11.3, platelet count of 179. Sodium is 142, potassium 4.1, BUN 15, creatinine 1.1, glucose 83. IMPRESSION: 1. Severe bilateral lower extremity edema, most consistent with lymphedema, with areas of superficial ulceration on the left lower leg. 2. Morbid obesity, likely contributing to her lymphedema. RECOMMENDATION: 1. Would resume compression wraps as well as topical treatment of her ulcer with antibiotic ointment. 2. IV antibiotics per Infectious Disease team. 3. No indications for vascular intervention at this time. 4. Would consider Plastic Surgery evaluation at the [facility] for other options of lymphedema treatment including possible resection and skin grafting versus other options. JOYA BURCH MD DR: VIKAS/silvestre JOB#: [id number] / [id number] MD
[2016-12-31] MEDS: DOCUSATE SODIUM 100 MG CAPSULE. PO SCH (08:46)
[2016-12-31] MEDS: HYDROcodone/APAP 10/325 1 TAB TABLET PO PRN ×2 (08:47→20:11)
[2016-12-31] MEDS: ONDANSETRON PF 4 MG/2 ML VIAL. IV PRN (08:50)
[2016-12-31] MEDS: POLYETHYLENE GLYCOL 3350 17 GM PACKET. PO SCH (09:00)
[2016-12-31] MEDS: VANCOMYCIN 2 GM in IV NORMAL SALINE 500ML BAG 500 ML IV SCH ×2 (11:10→20:26)
--- NOTE | 2016-12-31 11:44 | PDOC ---
PROGRESS NOTES Chief Complaint Chief Complaint Cellulitis ASSESSMENT AND PLAN: 1. Cellulitis: prelim cult with Staph. cont vanco as per ID. needs wound care team for poss debridement of superficial ulcers 2. Lymphedema: chronic. NATHAN wraps 3. Pain control: norco PRN. 4. CKD3: stable 5. Morbid obesity: BMI 65. nutrition consult 6. SAENZ: excedrin/Tylenol PRN 7. Prophylaxis: lovenox History of Present Illness History of Present Illness legs quite painful with movement. c/o SAENZ, not feeling right (?narcotics vs start of "head cold") Vitals Vitals Vital Signs Date Time Temp Pulse Resp B/P (MAP) Pulse Ox O2 Delivery O2 Flow Rate FiO2 12/31/16 11:11 18 Room Air 12/31/16 07:00 98.1 90 111/67 (82) 97 98.1 Physical Exam General: Alert, Oriented X3, Cooperative, No acute distress Heart: Regular rate, Other Lungs: Clear Abdomen: Normal bowel sounds, Soft, No tenderness Extremities: Other (massive lymphedema bilat, L>R) Skin: Other (erythema, swelling L LE with small ulcers scattered) JEN SIMON MD Dec 31, 2016 11:44
--- NOTE | 2016-12-31 11:46 | PDOC ---
Infectious Disease Note Subjective Subjective feeling better ROS ROS GEN: Denies fevers, chills, sweats HEENT: Denies blurred vision, sore throat CV: Denies chest pain RESP: Denies shortness of air, cough GI: Denies n/v/d NEURO: Denies confusion, dizziness Vital Sign Vital Signs Vital Signs Date Time Temp Pulse Resp B/P (MAP) Pulse Ox O2 Delivery O2 Flow Rate FiO2 12/31/16 11:11 18 Room Air 12/31/16 07:00 98.1 90 111/67 (82) 97 98.1 Physical Exam PHYSICAL EXAM GENERAL: NAD, Alert HEENT: PERRL, OC/OP NECK: Supple, no JVD, no LN LUNGS: Clear HEART: S1S2, no gallop, no murmur ABD: Soft, NT, no organomegaly, no rebound EXT: +++ edema, no cyanosis SHIP LINER: Alert, oriented x 3, no focal neurologic deficit SKIN: No rash IV: ok Objective Assessment Cellulitis of the left lower extremity. Impetiginous infection of the left lower extremity. Likely streptococcal. Hyperesthesia and severe leg pain of the left lower extremity. Tachycardia. Morbid obesity. Chronic kidney disease Plan Plan of Care vanc f/u cultures leg elevation GRAY TAYLOR MD Dec 31, 2016 11:46
[2016-12-31] MEDS: VANCOMYCIN PER PHARMACY MC PRN (13:45)
[2016-12-31] MEDS: ASA/APAP/CAFFEINE 250/250/65MG TABLET. PO PRN ×2 (15:06→22:20)
[2016-12-31] MEDS ORDERED: HYDROcodone/APAP 10/325 1 TAB TABLET PO PRN (15:30)
[2017-01-01 03:14] VITALS: BP 122/72
[2017-01-01] MEDS: HYDROcodone/APAP 10/325 1 TAB TABLET PO PRN ×4 (04:59→22:47)
[2017-01-01 05:13] LABS: BASO % 1 % (0-3); EOS % 4 % (0-3); HEMATOCRIT 28.8 % (36.0-47.0); HEMOGLOBIN 9.9 g/dL (12.0-15.5); LYMPH % 41 % (24-48); MEAN CORPUSCULAR HEMOGLOBIN 29 pg (25-35); MEAN CORPUSCULAR HGB CONC 35 g/dL (31-37); MEAN CORPUSCULAR VOLUME 85 fL (79-100); MONO % 9 % (0-9); NEUT % 46 % (31-73); PLATELET COUNT 196 x10^3/uL (140-400); RED CELL DISTRIBUTION WIDTH 13.9 % (11.5-14.5)
[2017-01-01 05:35] LABS: CALCIUM 7.9 mg/dL (8.5-10.1); CREATININE 0.8 mg/dL (0.6-1.0); GFR 81.2; POTASSIUM 3.9 mmol/L (3.5-5.1)
[2017-01-01 07:00] VITALS: BP 92/45
[2017-01-01] MEDS: POLYETHYLENE GLYCOL 3350 17 GM PACKET. PO SCH (08:04)
[2017-01-01] MEDS: DOCUSATE SODIUM 100 MG CAPSULE. PO SCH (08:04)
--- NOTE | 2017-01-01 09:35 | PDOC ---
Infectious Disease Note Subjective Subjective feeling better ROS ROS GEN: Denies fevers, chills, sweats HEENT: Denies blurred vision, sore throat CV: Denies chest pain RESP: Denies shortness of air, cough GI: Denies n/v/d NEURO: Denies confusion, dizziness MSK: Denies weakness, joint pain/swelling Vital Sign Vital Signs Vital Signs Date Time Temp Pulse Resp B/P (MAP) Pulse Ox O2 Delivery O2 Flow Rate FiO2 01/01/17 08:00 Room Air 01/01/17 07:00 97.9 79 20 92/45 (61) 93 97.9 Physical Exam PHYSICAL EXAM GENERAL: NAD, Alert HEENT: PERRL, OC/OP NECK: Supple, no JVD, no LN LUNGS: Clear HEART: S1S2, no gallop, no murmur ABD: Soft, NT, no organomegaly, no rebound EXT: No edema, no cyanosis,, lymphedema, ulceration and redness TRANSMITTER ENGINEER: Alert, oriented x 3, no focal neurologic deficit SKIN: No rash IV: ok Labs Lab Laboratory Tests Test 01/01/17 04:40 White Blood Count 5.0 x10^3/uL (4.0-11.0) Red Blood Count 3.40 x10^6/uL (3.50-5.40) Hemoglobin 9.9 g/dL (12.0-15.5) Hematocrit 28.8 % (36.0-47.0) Mean Corpuscular Volume 85 fL (79-100) Mean Corpuscular Hemoglobin 29 pg (25-35) Mean Corpuscular Hemoglobin Concent 35 g/dL (31-37) Red Cell Distribution Width 13.9 % (11.5-14.5) Platelet Count 196 x10^3/uL (140-400) Neutrophils (%) (Auto) 46 % (31-73) Lymphocytes (%) (Auto) 41 % (24-48) Monocytes (%) (Auto) 9 % (0-9) Eosinophils (%) (Auto) 4 % (0-3) Basophils (%) (Auto) 1 % (0-3) Neutrophils # (Auto) 2.3 x10^3uL (1.8-7.7) Lymphocytes # (Auto) 2.0 x10^3/uL (1.0-4.8) Monocytes # (Auto) 0.4 x10^3/uL (0.0-1.1) Eosinophils # (Auto) 0.2 x10^3/uL (0.0-0.7) Basophils # (Auto) 0.0 x10^3/uL (0.0-0.2) Sodium Level 139 mmol/L (136-145) Potassium Level 3.9 mmol/L (3.5-5.1) Chloride Level 104 mmol/L (98-107) Carbon Dioxide Level 29 mmol/L (21-32) Anion Gap 6 (6-14) Blood Urea Nitrogen 9 mg/dL (7-20) Creatinine 0.8 mg/dL (0.6-1.0) Estimated GFR (Cockcroft-Gault) 81.2 Glucose Level 90 mg/dL (70-99) Calcium Level 7.9 mg/dL (8.5-10.1) Objective Assessment Cellulitis of the left lower extremity. Impetiginous infection of the left lower extremity. Likely streptococcal. Hyperesthesia and severe leg pain of the left lower extremity. Tachycardia. Morbid obesity. Chronic kidney disease Plan Plan of Care vanc,, d/c ok on zyvox, or wait till staph susceptibility known f/u cultures leg elevation GRAY TAYLOR MD Jan 01, 2017 09:35
[2017-01-01] MEDS: VANCOMYCIN 2 GM in IV NORMAL SALINE 500ML BAG 500 ML IV SCH ×2 (10:27→22:43)
[2017-01-01 11:00] VITALS: BP 108/66
[2017-01-01] MEDS: diphenhydrAMINE HCL 25 MG CAPSULE PO PRN (13:37)
[2017-01-01] MEDS: VANCOMYCIN PER PHARMACY MC PRN (13:49)
[2017-01-01 15:00] VITALS: BP 110/63
--- NOTE | 2017-01-01 16:12 | PDOC ---
PROGRESS NOTES Chief Complaint Chief Complaint Cellulitis ASSESSMENT AND PLAN: 1. Cellulitis: prelim cult with StaphStrep. cont vanco for now until sensitivities available. appreciate wound care team help w/ management 2. Lymphedema: chronic. NATHAN wraps 3. Pain control: norco PRN. 4. CKD3: stable 5. Morbid obesity: BMI 65. nutrition consult 6. SAENZ: excedrin/Tylenol PRN 7. Prophylaxis: lovenox 8. Dispo: home with assistance when Abx determined History of Present Illness History of Present Illness legs quite painful with movement. sl nauseous, but eating almost all her trays. Vitals Vitals Vital Signs Date Time Temp Pulse Resp B/P (MAP) Pulse Ox O2 Delivery O2 Flow Rate FiO2 01/01/17 11:25 20 95 Room Air 01/01/17 11:00 97.7 77 108/66 (80) 97.7 Physical Exam General: Alert, Oriented X3, Cooperative, No acute distress Heart: Regular rate, Other Lungs: Clear Abdomen: Normal bowel sounds, Soft, No tenderness Extremities: Other (massive lymphedema bilat, L>R) Skin: Other (erythema, swelling L LE with small ulcers scattered) Labs LABS Laboratory Tests Test 01/01/17 04:40 White Blood Count 5.0 x10^3/uL (4.0-11.0) Red Blood Count 3.40 x10^6/uL (3.50-5.40) Hemoglobin 9.9 g/dL (12.0-15.5) Hematocrit 28.8 % (36.0-47.0) Mean Corpuscular Volume 85 fL (79-100) Mean Corpuscular Hemoglobin 29 pg (25-35) Mean Corpuscular Hemoglobin Concent 35 g/dL (31-37) Red Cell Distribution Width 13.9 % (11.5-14.5) Platelet Count 196 x10^3/uL (140-400) Neutrophils (%) (Auto) 46 % (31-73) Lymphocytes (%) (Auto) 41 % (24-48) Monocytes (%) (Auto) 9 % (0-9) Eosinophils (%) (Auto) 4 % (0-3) Basophils (%) (Auto) 1 % (0-3) Neutrophils # (Auto) 2.3 x10^3uL (1.8-7.7) Lymphocytes # (Auto) 2.0 x10^3/uL (1.0-4.8) Monocytes # (Auto) 0.4 x10^3/uL (0.0-1.1) Eosinophils # (Auto) 0.2 x10^3/uL (0.0-0.7) Basophils # (Auto) 0.0 x10^3/uL (0.0-0.2) Sodium Level 139 mmol/L (136-145) Potassium Level 3.9 mmol/L (3.5-5.1) Chloride Level 104 mmol/L (98-107) Carbon Dioxide Level 29 mmol/L (21-32) Anion Gap 6 (6-14) Blood Urea Nitrogen 9 mg/dL (7-20) Creatinine 0.8 mg/dL (0.6-1.0) Estimated GFR (Cockcroft-Gault) 81.2 Glucose Level 90 mg/dL (70-99) Calcium Level 7.9 mg/dL (8.5-10.1) JEN SIMON MD Jan 01, 2017 16:12
[2017-01-01 19:00] VITALS: BP 126/66
[2017-01-01] MEDS: ONDANSETRON PF 4 MG/2 ML VIAL. IV PRN (20:16)
[2017-01-01 23:00] VITALS: BP 112/64
[2017-01-02 03:00] VITALS: BP 108/61
[2017-01-02 06:13] LABS: BASO % 1 % (0-3); EOS % 4 % (0-3); HEMATOCRIT 29.9 % (36.0-47.0); HEMOGLOBIN 10.2 g/dL (12.0-15.5); LYMPH # 1.8 x10^3/uL (1.0-4.8); LYMPH % 39 % (24-48); MEAN CORPUSCULAR HEMOGLOBIN 29 pg (25-35); MEAN CORPUSCULAR HGB CONC 34 g/dL (31-37); MEAN CORPUSCULAR VOLUME 85 fL (79-100); MONO % 11 % (0-9); NEUT % 45 % (31-73); PLATELET COUNT 200 x10^3/uL (140-400); RED BLOOD COUNT 3.54 x10^6/uL (3.50-5.40); WHITE BLOOD COUNT 4.6 x10^3/uL (4.0-11.0)
[2017-01-02 06:36] LABS: CALCIUM 7.7 mg/dL (8.5-10.1); CREATININE 0.9 mg/dL (0.6-1.0); GFR 70.8; POTASSIUM 4.1 mmol/L (3.5-5.1)
[2017-01-02] MEDS: ASA/APAP/CAFFEINE 250/250/65MG TABLET. PO PRN ×2 (06:44→20:16)
[2017-01-02 07:00] VITALS: BP 126/68
[2017-01-02] MEDS: DOCUSATE SODIUM 100 MG CAPSULE. PO SCH (08:52)
[2017-01-02] MEDS: ONDANSETRON PF 4 MG/2 ML VIAL. IV PRN (08:52)
[2017-01-02] MEDS: HYDROcodone/APAP 10/325 1 TAB TABLET PO PRN ×2 (08:58→19:58)
[2017-01-02] MEDS: POLYETHYLENE GLYCOL 3350 17 GM PACKET. PO SCH (08:58)
[2017-01-02] MEDS: VANCOMYCIN 2 GM in IV NORMAL SALINE 500ML BAG 500 ML IV SCH (09:04)
--- NOTE | 2017-01-02 10:44 | PDOC ---
Infectious Disease Note Subjective Subjective feeling better,, cont pain ROS ROS GEN: Denies fevers, chills, sweats HEENT: Denies blurred vision, sore throat CV: Denies chest pain RESP: Denies shortness of air, cough GI: Denies n/v/d NEURO: Denies confusion, dizziness MSK: Denies weakness, joint pain/swelling Vital Sign Vital Signs Vital Signs Date Time Temp Pulse Resp B/P (MAP) Pulse Ox O2 Delivery O2 Flow Rate FiO2 01/02/17 07:00 98.5 86 20 126/68 (87) 97 Room Air 98.5 Physical Exam PHYSICAL EXAM GENERAL: NAD, Alert HEENT: PERRL, OC/OP NECK: Supple, no JVD, no LN LUNGS: Clear HEART: S1S2, no gallop, no murmur ABD: Soft, NT, no organomegaly, no rebound EXT: No edema, no cyanosis,, leg edema and some redness REVISING CLERK: Alert, oriented x 3, no focal neurologic deficit SKIN: No rash IV: ok Labs Lab Laboratory Tests Test 01/02/17 05:20 White Blood Count 4.6 x10^3/uL (4.0-11.0) Red Blood Count 3.54 x10^6/uL (3.50-5.40) Hemoglobin 10.2 g/dL (12.0-15.5) Hematocrit 29.9 % (36.0-47.0) Mean Corpuscular Volume 85 fL (79-100) Mean Corpuscular Hemoglobin 29 pg (25-35) Mean Corpuscular Hemoglobin Concent 34 g/dL (31-37) Red Cell Distribution Width 14.0 % (11.5-14.5) Platelet Count 200 x10^3/uL (140-400) Neutrophils (%) (Auto) 45 % (31-73) Lymphocytes (%) (Auto) 39 % (24-48) Monocytes (%) (Auto) 11 % (0-9) Eosinophils (%) (Auto) 4 % (0-3) Basophils (%) (Auto) 1 % (0-3) Neutrophils # (Auto) 2.1 x10^3uL (1.8-7.7) Lymphocytes # (Auto) 1.8 x10^3/uL (1.0-4.8) Monocytes # (Auto) 0.5 x10^3/uL (0.0-1.1) Eosinophils # (Auto) 0.2 x10^3/uL (0.0-0.7) Basophils # (Auto) 0.0 x10^3/uL (0.0-0.2) Sodium Level 140 mmol/L (136-145) Potassium Level 4.1 mmol/L (3.5-5.1) Chloride Level 104 mmol/L (98-107) Carbon Dioxide Level 31 mmol/L (21-32) Anion Gap 5 (6-14) Blood Urea Nitrogen 13 mg/dL (7-20) Creatinine 0.9 mg/dL (0.6-1.0) Estimated GFR (Cockcroft-Gault) 70.8 Glucose Level 93 mg/dL (70-99) Calcium Level 7.7 mg/dL (8.5-10.1) Micro MRSA and G B strep Objective Assessment Cellulitis of the left lower extremity. Impetiginous infection of the left lower extremity. Likely streptococcal. Hyperesthesia and severe leg pain of the left lower extremity. Tachycardia. Morbid obesity. Chronic kidney disease Plan Plan of Care carter d/c ok f/u cultures leg elevation GRAY TAYLOR MD Jan 02, 2017 10:44
[2017-01-02 11:00] VITALS: BP 124/68
[2017-01-02] MEDS: LINEZOLID 600 MG TABLET PO SCH ×2 (11:58→19:57)
[2017-01-02] MEDS ORDERED: LINE600T PO (13:25)
[2017-01-02] MEDS ORDERED: DOCU-109 PO (13:25)
[2017-01-02] MEDS ORDERED: ACET325T9 PO (13:25)
[2017-01-02] MEDS ORDERED: DIPH25CA58 PO (13:25)
[2017-01-02] MEDS ORDERED: POLY17PO3 PO (13:25)
[2017-01-02] MEDS ORDERED: ASPI1TAB62 PO (13:25)
[2017-01-02] MEDS ORDERED: HYDR-2766 PO (13:25)
[2017-01-02 15:00] VITALS: BP 129/70
--- NOTE | 2017-01-02 18:07 | PDOC ---
PROGRESS NOTES Chief Complaint Chief Complaint Cellulitis ASSESSMENT AND PLAN: 1. Cellulitis: prelim cult with Staph/Strep. switched to linezolid by ID. 2. Lymphedema: chronic. NATHAN wraps 3. Pain control: norco PRN. 4. CKD3: stable 5. Morbid obesity: BMI 65. nutrition consult 6. SAENZ: excedrin/Tylenol PRN 7. Prophylaxis: lovenox 8. Dispo: home with assistance; pt refuses to leave hospital. keep until AM. History of Present Illness History of Present Illness legs quite painful with movement. sl nauseous, but eating almost all her trays. Vitals Vitals Vital Signs Date Time Temp Pulse Resp B/P (MAP) Pulse Ox O2 Delivery O2 Flow Rate FiO2 01/02/17 15:00 98.1 78 20 129/70 (89) 99 Room Air 98.1 Physical Exam General: Alert, Oriented X3, Cooperative, No acute distress Heart: Regular rate, Other Lungs: Clear Abdomen: Normal bowel sounds, Soft, No tenderness Extremities: Other (massive lymphedema bilat, L>R) Skin: Other (erythema, swelling L LE with small ulcers scattered) Labs LABS Laboratory Tests Test 01/02/17 05:20 White Blood Count 4.6 x10^3/uL (4.0-11.0) Red Blood Count 3.54 x10^6/uL (3.50-5.40) Hemoglobin 10.2 g/dL (12.0-15.5) Hematocrit 29.9 % (36.0-47.0) Mean Corpuscular Volume 85 fL (79-100) Mean Corpuscular Hemoglobin 29 pg (25-35) Mean Corpuscular Hemoglobin Concent 34 g/dL (31-37) Red Cell Distribution Width 14.0 % (11.5-14.5) Platelet Count 200 x10^3/uL (140-400) Neutrophils (%) (Auto) 45 % (31-73) Lymphocytes (%) (Auto) 39 % (24-48) Monocytes (%) (Auto) 11 % (0-9) Eosinophils (%) (Auto) 4 % (0-3) Basophils (%) (Auto) 1 % (0-3) Neutrophils # (Auto) 2.1 x10^3uL (1.8-7.7) Lymphocytes # (Auto) 1.8 x10^3/uL (1.0-4.8) Monocytes # (Auto) 0.5 x10^3/uL (0.0-1.1) Eosinophils # (Auto) 0.2 x10^3/uL (0.0-0.7) Basophils # (Auto) 0.0 x10^3/uL (0.0-0.2) Sodium Level 140 mmol/L (136-145) Potassium Level 4.1 mmol/L (3.5-5.1) Chloride Level 104 mmol/L (98-107) Carbon Dioxide Level 31 mmol/L (21-32) Anion Gap 5 (6-14) Blood Urea Nitrogen 13 mg/dL (7-20) Creatinine 0.9 mg/dL (0.6-1.0) Estimated GFR (Cockcroft-Gault) 70.8 Glucose Level 93 mg/dL (70-99) Calcium Level 7.7 mg/dL (8.5-10.1) JEN SIMON MD Jan 02, 2017 18:07
[2017-01-02 19:00] VITALS: BP_SYST 122; BP_SYST 134; BP_DIAS 78; BP_DIAS 80
[2017-01-02 23:00] VITALS: BP 96/45
[2017-01-03 03:00] VITALS: BP 125/62
[2017-01-03] MEDS: HYDROcodone/APAP 10/325 1 TAB TABLET PO PRN (04:50)
[2017-01-03 05:01] LABS: BASO # 0.1 x10^3/uL (0.0-0.2); BASO % 1 % (0-3); EOS % 4 % (0-3); HEMATOCRIT 30.5 % (36.0-47.0); HEMOGLOBIN 10.2 g/dL (12.0-15.5); LYMPH # 1.7 x10^3/uL (1.0-4.8); LYMPH % 32 % (24-48); MEAN CORPUSCULAR HEMOGLOBIN 29 pg (25-35); MEAN CORPUSCULAR HGB CONC 33 g/dL (31-37); MEAN CORPUSCULAR VOLUME 86 fL (79-100); MONO % 9 % (0-9); NEUT % 54 % (31-73); PLATELET COUNT 191 x10^3/uL (140-400); RED BLOOD COUNT 3.54 x10^6/uL (3.50-5.40); RED CELL DISTRIBUTION WIDTH 14.1 % (11.5-14.5); WHITE BLOOD COUNT 5.2 x10^3/uL (4.0-11.0)
[2017-01-03 05:13] LABS: CALCIUM 7.7 mg/dL (8.5-10.1); CREATININE 0.8 mg/dL (0.6-1.0); GFR 81.2; POTASSIUM 3.9 mmol/L (3.5-5.1)
[2017-01-03 07:30] VITALS: BP 106/64
[2017-01-03] MEDS: POLYETHYLENE GLYCOL 3350 17 GM PACKET. PO SCH (08:50)
[2017-01-03] MEDS: DOCUSATE SODIUM 100 MG CAPSULE. PO SCH (08:50)
[2017-01-03] MEDS: LINEZOLID 600 MG TABLET PO SCH (08:50)
[2017-01-03] MEDS: ONDANSETRON PF 4 MG/2 ML VIAL. IV PRN (09:16)
[2017-01-03] MEDS ORDERED: ONDANSETRON ODT 4 MG TAB.RAPDIS. PO PRN (09:30)
--- NOTE | 2017-01-03 10:27 | PDOC ---
Infectious Disease Note Subjective Subjective feeling better,, ROS ROS GEN: Denies fevers, chills, sweats HEENT: Denies blurred vision, sore throat CV: Denies chest pain RESP: Denies shortness of air, cough GI: Denies n/v/d NEURO: Denies confusion, dizziness Vital Sign Vital Signs Vital Signs Date Time Temp Pulse Resp B/P (MAP) Pulse Ox O2 Delivery O2 Flow Rate FiO2 01/03/17 08:50 97 Room Air 01/03/17 07:30 98.0 87 18 106/64 (78) 98.0 Physical Exam PHYSICAL EXAM GENERAL: NAD, Alert HEENT: PERRL, OC/OP NECK: Supple, no JVD, no LN LUNGS: Clear HEART: S1S2, no gallop, no murmur ABD: Soft, NT, no organomegaly, no rebound EXT: No edema, no cyanosis, leg edema less, softer STARCHMAKER: Alert, oriented x 3, no focal neurologic deficit SKIN: No rash IV: ok Labs Lab Laboratory Tests Test 01/03/17 03:51 White Blood Count 5.2 x10^3/uL (4.0-11.0) Red Blood Count 3.54 x10^6/uL (3.50-5.40) Hemoglobin 10.2 g/dL (12.0-15.5) Hematocrit 30.5 % (36.0-47.0) Mean Corpuscular Volume 86 fL (79-100) Mean Corpuscular Hemoglobin 29 pg (25-35) Mean Corpuscular Hemoglobin Concent 33 g/dL (31-37) Red Cell Distribution Width 14.1 % (11.5-14.5) Platelet Count 191 x10^3/uL (140-400) Neutrophils (%) (Auto) 54 % (31-73) Lymphocytes (%) (Auto) 32 % (24-48) Monocytes (%) (Auto) 9 % (0-9) Eosinophils (%) (Auto) 4 % (0-3) Basophils (%) (Auto) 1 % (0-3) Neutrophils # (Auto) 2.8 x10^3uL (1.8-7.7) Lymphocytes # (Auto) 1.7 x10^3/uL (1.0-4.8) Monocytes # (Auto) 0.5 x10^3/uL (0.0-1.1) Eosinophils # (Auto) 0.2 x10^3/uL (0.0-0.7) Basophils # (Auto) 0.1 x10^3/uL (0.0-0.2) Sodium Level 141 mmol/L (136-145) Potassium Level 3.9 mmol/L (3.5-5.1) Chloride Level 104 mmol/L (98-107) Carbon Dioxide Level 31 mmol/L (21-32) Anion Gap 6 (6-14) Blood Urea Nitrogen 10 mg/dL (7-20) Creatinine 0.8 mg/dL (0.6-1.0) Estimated GFR (Cockcroft-Gault) 81.2 Glucose Level 90 mg/dL (70-99) Calcium Level 7.7 mg/dL (8.5-10.1) Micro MRSA and G B strep Objective Assessment Cellulitis of the left lower extremity. Impetiginous infection of the left lower extremity. Likely streptococcal. Hyperesthesia and severe leg pain of the left lower extremity. Tachycardia. Morbid obesity. Chronic kidney disease Plan Plan of Care zyvox, , d/c ok, f/u with me in 2 wks, if zyvox not available then gorgey f/u cultures leg elevation GRAY TAYLOR MD Jan 03, 2017 10:26
[2017-01-03 10:30] VITALS: BP 95/62
[2017-01-03 14:30] VITALS: BP 144/91
--- NOTE | 2017-01-04 04:22 | DS ---
DATE OF DISCHARGE: 01/03/2017 CHIEF COMPLAINT: Cellulitis. HOSPITAL COURSE: The patient is a 36-year-old morbidly obese woman with chronic lymphedema who presented to the Emergency Room with left lower extremity cellulitis. She was seen by Infectious Disease as well as wound care services. The wounds were cleaned appropriately and she received initially IV antibiotics, later switched to linezolid p.o. for her lymphedema, which was chronic and had been treated occasionally by lymphedema clinic. She once again received therapy with advice to take it seriously and it may take as much as 12 weeks to improve her lower extremities. The patient responded well to treatment, but insisted on remaining in the hospital as she felt that usually she stayed 10-14 days until her legs got completely better. She, however, was advised that she was able to ambulate with physical therapy and was actually able to take showers by herself and therefore deemed inappropriate to remain in the hospital. She did agree to a discharge on 01/03/2017 to home with services. She was strongly advised to follow up in the lymphedema clinic for outpatient treatment. PHYSICAL EXAMINATION: VITAL SIGNS: Blood pressure of 129/70, heart rate of 78, respiratory rate at 20. She is afebrile. GENERAL: This is a morbidly obese woman, alert and oriented, in no acute distress. LUNGS: Clear. HEART: Regular rate and rhythm. ABDOMEN: Has positive bowel sounds, obese. EXTREMITIES: Wrapped in Alon wrap. DISCHARGE DIAGNOSES: Lower extremity cellulitis, chronic lymphedema. DISCHARGE DISPOSITION: To home with services. DISCHARGE CONDITION: Improved. DISCHARGE MEDICATIONS: Please refer to MAR. DISCHARGE INSTRUCTIONS: The patient will follow up with physical therapy for lymphedema treatment on an outpatient basis. She will follow up with her PCP in 1-2 weeks. JEN SIMON MD DR: UR/nts JOB#: [id number] / [id number] HARMONY Murdock MD
[2017-02-09] MEDS ORDERED: LACT1CAP24 PO (10:11)
[2017-02-09] MEDS ORDERED: AMOX1TAB61 PO (10:11)
[2017-02-09] MEDS ORDERED: LINE600T PO (10:11)
[2017-02-09] MEDS ORDERED: CYCL10TA2 PO (10:16)
[2017-02-09] MEDS ORDERED: GABA600T2 PO (10:16)
[2017-02-09] MEDS ORDERED: FLUC200T PO (10:16)
[2017-02-09] MEDS ORDERED: HYDR-2762 PO (10:16)
[2017-02-09] MEDS ORDERED: TIZA4CAP3 PO (17:19)
== END 2017-01-03 19:22 | disposition home health service (06) | DRG 603 ==
LOC: ER 16:54 → 5 NORTH 19:45
PROVIDERS: ADMIT Internal Medicine; ATTEND Internal Medicine
DX: L03.116 Cellulitis of left lower limb (principal); N18.3 Chronic kidney disease, stage 3 (moderate); L97.929 Non-pressure chronic ulcer of unspecified part of left lower leg with unspecified severity; Z68.44 Body mass index [BMI] 60.0-69.9, adult; E66.01 Morbid (severe) obesity due to excess calories; I89.0 Lymphedema, not elsewhere classified; J45.909 Unspecified asthma, uncomplicated; Z87.891 Personal history of nicotine dependence; Z86.14 Personal history of Methicillin resistant Staphylococcus aureus infection; R20.3 Hyperesthesia
CPT/HCPCS: 36415; 80048; 80053; 80202; 81025; 83605; 85025; 86140; 87040; 87070; 87186; 87205; 90686; 90715; 90732; 94250; 94760; 96365; 96366; 96375; J1650; J2270; J2405; J3010; J3370; J7040; Q0162; Q0163; 97116; 97140; 97530; 97535; 99285-25

== ENCOUNTER 2018-10-02 16:01 | Emergency (ER) | payer MEDICAID ==
[~2018-10-02] VITALS: Ht 160 cm; Wt 167.8 kg
[~2018-10-02 16:01] MED LIST changes: +ACET325T9 PO; +ALBU2.5V8 INH; +AMOX1TAB61 PO; +ASPI1TAB62 PO; +CEFP100T PO; +CYCL10TA2 PO; +DIPH25CA58 PO; +DOCU-109 PO; +FLUC200T PO; +Fluconazole PO; +GABA600T7 PO; +HYDR-2765 PO; +HYDR-2769 PO; +LACT1CAP24 PO; +LINE600T PO; +POLY17PO28 PO; -PROAIR HFA8.5 GM INH; +TIZA4CAP3 PO
[2018-10-02 16:14] VITALS: BP 148/82
[2018-10-02 16:41] LABS: BASO % 1 % (0-3); EOS # 0.1 x10^3/uL (0.0-0.7); EOS % 1 % (0-3); HEMATOCRIT 31.9 % (36.0-47.0); HEMOGLOBIN 10.9 g/dL (12.0-15.5); LYMPH # 1.7 x10^3/uL (1.0-4.8); LYMPH % 22 % (24-48); MEAN CORPUSCULAR HEMOGLOBIN 28 pg (25-35); MEAN CORPUSCULAR HGB CONC 34 g/dL (31-37); MEAN CORPUSCULAR VOLUME 83 fL (79-100); MONO # 0.5 x10^3/uL (0.0-1.1); MONO % 6 % (0-9); NEUT # 5.7 x10^3uL (1.8-7.7); NEUT % 71 % (31-73); PLATELET COUNT 219 x10^3/uL (140-400); RED BLOOD COUNT 3.83 x10^6/uL (3.50-5.40); RED CELL DISTRIBUTION WIDTH 16.2 % (11.5-14.5); WHITE BLOOD COUNT 8.1 x10^3/uL (4.0-11.0)
[2018-10-02 17:00] LABS: CALCIUM 8.4 mg/dL (8.5-10.1); CREATININE 0.7 mg/dL (0.6-1.0); GFR 93.6; POTASSIUM 3.7 mmol/L (3.5-5.1)
[2018-10-02 17:07] LABS: ALBUMIN 2.7 g/dL (3.4-5.0); ALBUMIN/GLOBULIN RATIO 0.7 (1.0-1.7); TOTAL BILIRUBIN 0.6 mg/dL (0.2-1.0); TOTAL PROTEIN 6.7 g/dL (6.4-8.2)
--- NOTE | 2018-10-02 17:07 | RAD ---
Left lower extremity venous ultrasound, 10/02/2018 : History: Left lower extremity swelling and redness Duplex evaluation including grayscale, color flow and spectral Doppler analysis was performed. The femoral and popliteal veins show no filling defects to suggest DVT. Patent posterior tibial veins are present left calf. The peroneal veins were not adequately visualized due to the patient's body habitus. Moderate edema is noted in the left calf. IMPRESSION: There is no sonographic evidence of deep vein thrombosis in the left lower extremity Electronically signed by: Cornelio Arnold MD (10/02/2018 5:04 PM) [facility]
[2018-10-02] MEDS ORDERED: CEPH500T PO (17:20)
--- NOTE | 2018-10-02 17:20 | PHYS DOC ---
Past Medical History Past Medical History: Other Additional Past Medical Histor: LYMPHEDEMA (BILATERAL LOWER EXT), LIPIDEMA (BILATERAL LOWER EXT) (ASHLEY DIANE APRN) Past Surgical History: , Other Additional Past Surgical Histo: D&C X 2, LEFT ANKLE (ASHLEY DIANE APRN) Alcohol Use: None Drug Use: None (ASHLEY DIANE APRN) Adult General Chief Complaint Chief Complaint: LOWER EXT PAIN HPI HPI Patient is a 38 year old female with a history of chronic lymphedema currently 4 months 7 para 6 who presents to the ED today complaining of left lower extremity increased swelling and redness that she noted this morning. Patient states she was sent to the ED to rule out DVT. She states she's had cellulitis with sepsis to the left lower extremity and would like to be checked for infection. Denies any fever. (ASHLEY DIANE APRN) Review of Systems Review of Systems Constitutional: Denies fever or chills [] Eyes: Denies change in visual acuity, redness, or eye pain [] HENT: Denies nasal congestion or sore throat [] Respiratory: Denies cough or shortness of breath [] Cardiovascular: No additional information not addressed in HPI [] GI: Reports . Denies abdominal pain, nausea, vomiting, bloody stools or diarrhea [] : Denies dysuria or hematuria [] Musculoskeletal: Denies back pain or joint pain [] Integument: Reports redness and swelling to the left lower extremity. Neurologic: Denies headache, focal weakness or sensory changes [] All other systems were reviewed and found to be within normal limits, except as documented in this note. (ASHLEY DIANE APRN) Allergies Allergies Allergies Coded Allergies Type Severity Reaction Last Updated Verified No Known Drug Allergies 04/05/15 No (TR FORMAN DO) Physical Exam Physical Exam Constitutional: Overweight patient. Well developed, well nourished, no acute distress, non-toxic appearance. [] HENT: Normocephalic, atraumatic, bilateral external ears normal, oropharynx moist, no oral exudates, nose normal. [] Eyes: PERRLA, EOMI, conjunctiva normal, no discharge. [] Neck: Normal range of motion, no tenderness, supple, no stridor. [] Cardiovascular:Heart rate regular rhythm, no murmur [] Lungs & Thorax: Bilateral breath sounds clear to auscultation [] Abdomen: Bowel sounds normal, soft, no tenderness, no masses, no pulsatile masses. [] Skin: Warm, dry, no erythema, no rash. [] Back: No tenderness, no CVA tenderness. [] Extremities: Moderate chronic lymphedema noted on the left lower extremity, mild lymphedema noted on the right lower extremity. There is trace cellulitis on the left lower extremity. There is a wound on the back of the right calf approximately 0.2 x 0.2 cm with no drainage. +1 bilateral pedal pulses. Cap refill less than 2 seconds bilateral lower extremities. Range of motion intact. Neurologic: Alert and oriented X 3, normal motor function, normal sensory function, no focal deficits noted. [] Psychologic: Affect normal, judgement normal, mood normal. [] (ASHLEY DIANE APRN) Current Patient Data Vital Signs Vital Signs Date Time Temp Pulse Resp B/P (MAP) Pulse Ox O2 Delivery O2 Flow Rate FiO2 10/02/18 16:14 97.9 91 20 148/82 (104) 98 Room Air 97.9 ([facility]) Lab Values Laboratory Tests Test 10/02/18 16:30 White Blood Count 8.1 x10^3/uL (4.0-11.0) Red Blood Count 3.83 x10^6/uL (3.50-5.40) Hemoglobin 10.9 g/dL (12.0-15.5) L Hematocrit 31.9 % (36.0-47.0) L Mean Corpuscular Volume 83 fL (79-100) Mean Corpuscular Hemoglobin 28 pg (25-35) Mean Corpuscular Hemoglobin Concent 34 g/dL (31-37) Red Cell Distribution Width 16.2 % (11.5-14.5) H Platelet Count 219 x10^3/uL (140-400) Neutrophils (%) (Auto) 71 % (31-73) Lymphocytes (%) (Auto) 22 % (24-48) L Monocytes (%) (Auto) 6 % (0-9) Eosinophils (%) (Auto) 1 % (0-3) Basophils (%) (Auto) 1 % (0-3) Neutrophils # (Auto) 5.7 x10^3uL (1.8-7.7) Lymphocytes # (Auto) 1.7 x10^3/uL (1.0-4.8) Monocytes # (Auto) 0.5 x10^3/uL (0.0-1.1) Eosinophils # (Auto) 0.1 x10^3/uL (0.0-0.7) Basophils # (Auto) 0.0 x10^3/uL (0.0-0.2) Sodium Level 136 mmol/L (136-145) Potassium Level 3.7 mmol/L (3.5-5.1) Chloride Level 100 mmol/L (98-107) Carbon Dioxide Level 27 mmol/L (21-32) Anion Gap 9 (6-14) Blood Urea Nitrogen 10 mg/dL (7-20) Creatinine 0.7 mg/dL (0.6-1.0) Estimated GFR (Cockcroft-Gault) 93.6 BUN/Creatinine Ratio 14 (6-20) Glucose Level 116 mg/dL (70-99) H Calcium Level 8.4 mg/dL (8.5-10.1) L Total Bilirubin 0.6 mg/dL (0.2-1.0) Aspartate Amino Transferase (AST) 16 U/L (15-37) Alanine Aminotransferase (ALT) 29 U/L (14-59) Alkaline Phosphatase 95 U/L (46-116) Total Protein 6.7 g/dL (6.4-8.2) Albumin 2.7 g/dL (3.4-5.0) L Albumin/Globulin Ratio 0.7 (1.0-1.7) L Laboratory Tests 10/02/18 16:30 Laboratory Tests 10/02/18 16:30 (TR FORMAN DO) EKG EKG [] (ASHLEY DIANE APRN) Radiology/Procedures Radiology/Procedures []PROCEDURE: VENOUS LOWER EXTREMITY LEFT Left lower extremity venous ultrasound, 10/02/2018 : History: Left lower extremity swelling and redness Duplex evaluation including grayscale, color flow and spectral Doppler analysis was performed. The femoral and popliteal veins show no filling defects to suggest DVT. Patent posterior tibial veins are present left calf. The peroneal veins were not adequately visualized due to the patient's body habitus. Moderate edema is noted in the left calf. IMPRESSION: There is no sonographic evidence of deep vein thrombosis in the left lower extremity Electronically signed by: Cornelio Arnold MD (10/02/2018 5:04 PM) [facility] DICTATED and SIGNED BY: CORNELIO ARNOLD MD DATE: 10/02/18 6922 (ASHLEY DIANE APRN) Course & Med Decision Making Course & Med Decision Making Pertinent Labs and Imaging studies reviewed. (See chart for details) This is a 38-year-old female patient with history of chronic lymphedema presenting to the complaining of increased swelling to the left lower extremity as well as concern for cellulitis and DVT. She is currently 4 months 7 para 6. Tetanus is up-to-date. Venous Doppler of the left lower extremity is negative. CBC with a normal WBC hgb 10.8 hct 31.9-encouraged vitamins. CMP with no acute findings. Patient is afebrile Will be discharged on cephalexin. Encouraged to follow-up with her own PCP in the [employer] [employer]PERATOR/specialist in the next 7 days. (ASHLEY DIANE APRN) Dragon Disclaimer Dragon Disclaimer This electronic medical record was generated, in whole or in part, using a voice recognition dictation system. (ASHLEY DIANE APRN) Departure Departure Impression: Primary Impression: Lymphedema Additional Impressions: Cellulitis of lower extremity Disposition: 01 HOME, SELF-CARE Condition: STABLE Referrals: HARMONY SAMUEL MD (PCP) follow up next week Patient Instructions: Cellulitis, [id number] Additional Instructions: You were evaluated in the emergency room for lymphedema and noted to have some cellulitis, your venous doppler of the left lower extremity is negative for blood clot. Your white count is normal. Take the prescribed medications as ordered ensure you complete your antibiotics. Keep the affected areas clean and dry.Take vitamins because your hemoglobin is slightly low Scripts Cephalexin (CEPHALEXIN) 500 Mg Tablet 1 TAB PO QID, #40 TAB Prov: ASHLEY DIANE APRN 10/02/18 Attending Signature Attending Signature I have reviewed the PA/PATHOLOGY ASSISTANT's note and plan of care. I was available for consultation as needed during the patient's visit in the emergency department. I agree with the clinical impression, plan, and disposition. (TR FORMAN DO) Problem Qualifiers Additional Impressions: Cellulitis of lower extremity Laterality: left Qualified Codes: L03.116 - Cellulitis of left lower limb Weeks of gestation: less than 8 weeks Qualified Codes: Z3A.01 - Less than 8 weeks gestation of ASHLEY DIANE APRN Oct 02, 2018 17:20 TR FORMAN DO Oct 06, 2018 15:03
== END 2018-10-02 17:52 | disposition home or self-care (01) ==
LOC: ER 16:01
DX: O99.89 Other specified diseases and conditions complicating pregnancy, childbirth and the puerperium (principal); L03.116 Cellulitis of left lower limb; I89.0 Lymphedema, not elsewhere classified; M79.605 Pain in left leg; Z3A.16 16 weeks gestation of pregnancy
CPT/HCPCS: 36415; 80053; 85025; 93971; 99285-25

== ENCOUNTER 2020-10-25 21:49 | Emergency (ER) | payer MEDICAID ==
[~2020-10-25] VITALS: Ht 160 cm; Wt 148.0 kg
[~2020-10-25 21:49] MED LIST changes: +CEPH500T PO; -LINE600T PO; +LINE600T12 PO; +PNV1TABL25 PO; -POLY17PO28 PO; +POLY17PO52 PO
[2020-10-25] MEDS ORDERED: HYDROcodone/APAP 10/325 1 TAB TABLET PO ONE (23:30)
--- NOTE | 2020-10-26 00:08 | PHYS DOC ---
Past Medical History Past Medical History: Other Additional Past Medical Histor: lypolymphadema Past Surgical History: , Tonsillectomy Additional Past Surgical Histo: left ankle surgery x3, DNC x 2, Smoking Status: Current Some Day Smoker Alcohol Use: None Drug Use: None General Adult EDM: Chief Complaint: LOWER EXTREMITY SWELLING HPI: HPI: Patient is a 40 year old female presents emergency department chief complaint of right anterior lower leg pain after being massaged by her daughter. Patient states she noticed that she had pain in the area when her dog would jump on her leg. Patient states that when her daughter massage the area she had an acute pain and became concerned over the weekend. Patient became concerned when someone told her it could be a blood clot. Patient states she has a history of lymphedema, has had lower extremity cellulitis in the past but does not have any concerns of cellulitis today. Patient denies any loss of sensation of her lower extremities, recent fever or chills, recent illnesses. Patient denies any chest pains, shortness of breath, chest congestion, cough, nausea, vomiting, diarrhea, or abdominal pains. Patient denies any other physical complaints or physical concerns. Patient states she has not taken anything for the pain. Review of Systems: Review of Systems: 14 body systems of review of systems have been reviewed. See HPI for pertinent positives and negative responses, otherwise all other systems are negative, nonpertinent or noncontributory. Constitutional: Negative except as outlined in HPI above. Skin: Negative except as outlined in HPI above. Eyes: Negative except as outlined in HPI above. HENT: Negative except as outlined in HPI above. Respiratory: Negative except as outlined in HPI above. Cardiovascular: Negative except as outlined in HPI above. GI: Negative except as outlined in HPI above. : Negative except as outlined in HPI above. Musculoskeletal: Negative except as outlined in HPI above. Integument: Negative except as outlined in HPI above. Neurologic: Negative except as outlined in HPI above. Endocrine: Negative except as outlined in HPI above. Lymphatic: Negative except as outlined in HPI above. Psychiatric: Negative except as outlined in HPI above. Heart Score: C/O Chest Pain: No Risk Factors: Risk Factors: DM, Current or recent (<one month) smoker, HTN, HLP, family history of CAD, obesity. Risk Scores: Score 0 - 3: 2.5% MACE over next 6 weeks - Discharge Home Score 4 - 6: 20.3% MACE over next 6 weeks - Admit for Clinical Observation Score 7 - 10: 72.7% MACE over next 6 weeks - Early Invasive Strategies Current Medications: Current Medications Medications (Trade) Dose Ordered Sig/Uvaldo Start Time Stop Time Status Last Admin Dose Admin Acetaminophen/ Hydrocodone Bitart (Lortab 10/325) 1 tab 1X ONCE 10/25/20 23:30 10/25/20 23:31 DC 10/25/20 23:21 1 TAB Allergies: Allergies: Allergies Coded Allergies Type Severity Reaction Last Updated Verified No Known Drug Allergies 04/05/15 No Physical Exam: PE: Constitutional: Well developed, well nourished, no acute distress, non-toxic appearance. 40-year-old female in no apparent distress. HENT: Normocephalic, atraumatic. Eyes: Conjunctiva normal, no discharge. Neck: Normal range of motion, no stridor. Cardiovascular: No cyanosis appreciated, distal cap refill less than 2 seconds. Lungs & Thorax: Patient is in no respiratory distress, no audible adventitious lung sounds appreciated. Abdomen: Nontender, no abnormalities noted. Skin: Warm, dry, no erythema, no rash. Back: No tenderness, no deformities. Extremities: No tenderness, no cyanosis, no clubbing, ROM intact, no edema. Except for right lower extremity anterior aspect lower third of leg has contusion, no redness or erythema appreciated, bilateral extremities are swollen related to chronic lymphedema, no infectious process appreciated, 2+ dorsalis pedis/posterior tibial pulses, distal cap refill less than 2 seconds. No pain in calf or popliteal fossa area or adjacent structures. Neurologic: Alert and oriented X 3, normal motor function, normal sensory function, no focal deficits noted. Psychologic: Affect normal, judgement normal, mood normal. Current Patient Data: Vital Signs: Vital Signs Date Time Temp Pulse Resp B/P (MAP) Pulse Ox O2 Delivery O2 Flow Rate FiO2 10/25/20 23:51 18 97 10/25/20 23:23 83 163/82 (109) Room Air 10/25/20 22:24 98.2 98.2 EKG: EKG: [] Radiology/Procedures: Radiology/Procedures: [] Course & Med Decision Making: Course & Med Decision Making Pertinent Labs and Imaging studies reviewed. (See chart for details) 40-year-old female, vital signs reviewed, presents emergency department complaining of right lower leg pain. Physical examination reveals contusion of right lower leg. This is unlikely a DVT, discussed findings with patient. Will give oral pain medication. Discussed with patient to follow-up with primary care for ongoing pain management. Discuss with the patient all findings and diagnostic testing as well as the need to follow-up with their primary care provider for further evaluation and treatment or return to the ED if any new or worsening symptoms. Strict return p recautions were also discussed at length, the patient voiced understanding and agreement with the discharge planning. The patient was nontoxic in appearance, in no apparent distress, and hemodynamically stable at the time of disposition. Dragon Disclaimer: Dragon Disclaimer: This electronic medical record was generated, in whole or in part, using a voice recognition dictation system. Departure Departure Impression: Primary Impression: Contusion of right lower leg, initial encounter Disposition: HOME / SELF CARE / HOMELESS Condition: GOOD Referrals: HARMONY SAMUEL MD (PCP) Patient Instructions: Contusion Additional Instructions: You are seen today in the emergency department for pain to your right lower leg. The examination was consistent with a contusion. This is unlikely a deep vein thrombosis or clot as we discussed at length at the bedside. I have given you pain medication to help with your pain. As we discussed please elevate and ice 30 minutes on 30 minutes off while awake. Please follow-up with your primary care doctor for ongoing pain management. Thank you for visiting our Emergency Department. It was a pleasure taking care of you today in the emergency department and we appreciate you trusting us with your care. If any additional problems come up don't hesitate to return to visit us. Please follow up with your primary care provider so they can plan additional care if needed and know about the problem that you had. If symptoms worsen come back to the Emergency Department. Any concerning symptoms that start such as chest pain, shortness of air, weakness or numbness on one side of the body, running high fevers or any other concerning symptoms return to the ER. EMERGENCY DEPARTMENT GENERAL DISCHARGE INSTRUCTIONS Thank you for coming to [facility] Emergency Department (ED) today and trusting us with you care. We trust that you had a positive experience in our Emergency Department. If you wish to speak to the department management, you may call the Director at [phone]. YOUR FOLLOW UP INSTRUCTIONS ARE FOLLOWS: 1. Do you have a private Doctor? If you do not have a private doctor, please ask for a resource list of physicians or clinics that may be able to assist you with follow up care. 2. The Emergency Physicain has interpreted your x-rays. The X-Ray specialist will also review them. If there is a change in the findings, you will be notified in 48 hours when at all possible. 3. A lab test or culture has been done, your results will be reviewed and you will be notified if you need a change in treatment. ADDITIONAL INSTRUCTIONS AND INFORMATION: 1. Your care today has been supervised by a physician who is specially trained in emergency care. Many problems require more than one evaluation for a complete diagnosis and treatment. We recommend that you schedule your follow up appointment as recommended to ensure complete treatment of you illness or injury. If you are unable to obtain follow up care and continue to have a problem, or if your condition worsens, we recommend that you return to the ED. 2. We are not able to safely determine your condition over the phone nor are we able to give sound medical advice over the phone. For these safety reasons, if you call for medical advice we will ask you to come to the ED for further evaluation. 3. If you have any questions regarding these discharge instructions please call the ED at [phone]. SAFETY INFORMATION: In the interest of safety, wellness, and injury prevention; we encourage you to wear your sealbelt, if you smoke; quite smoking, and we encourage family to use a protective helmet for bicycling and other sporting events that present an increased risk for head injury. IF YOUR SYMPTOMS WORSEN OR NEW SYMPTOMS DEVELOP, OR YOU HAVE CONCERNS ABOUT YOUR CONDITION; OR IF YOUR CONDITION WORSENS WHILE YOU ARE WAITING FOR YOUR FOLLOW UP APPOINTMENT; EITHER CONTACT YOUR PRIMARY CARE DOCTOR, THE PHYSICIAN WHOSE NAME AND NUMBER YOU WERE GIVEN, OR RETURN TO THE ED IMMEDIATELY. Scripts Hydrocodone Bit/Acetaminophen (HYDROCODONE-APAP 5-325 ) 1 Tab Tablet 1 TAB PO PRN Q6HRS PRN for PAIN, #10 TAB 0 Refills Prov: TR MCCORMICK APRN 10/26/20 TR MCCORMICK APRN Oct 26, 2020 00:08
[2020-10-26] MEDS ORDERED: HYDR-2761 PO (00:17)
[2020-10-26 00:21] VITALS: BP 141/67
== END 2020-10-26 00:52 | disposition home or self-care (01) ==
LOC: ER 21:49
DX: S80.11XA Contusion of right lower leg, initial encounter (principal); F17.200 Nicotine dependence, unspecified, uncomplicated; X58.XXXA Exposure to other specified factors, initial encounter; Y93.89 Activity, other specified; Y92.89 Other specified places as the place of occurrence of the external cause; Y99.8 Other external cause status
CPT/HCPCS: 99283

== ENCOUNTER 2021-02-21 20:44 | Emergency (ER) | payer OTHER, MEDICAID ==
[~2021-02-21] VITALS: Ht 157.5 cm; Wt 155.0 kg
[~2021-02-21 20:44] MED LIST changes: +CYCL10TA19 PO; -CYCL10TA2 PO; +HYDR-2761 PO
[2021-02-21] MEDS ORDERED: IPRATRPIUM/ALBUTEROL 0.5/2.5MG 3 ML NEBU. NEB ONE (22:45)
[2021-02-21] MEDS ORDERED: DEXAMETHASONE SOD PHOS 4 MG/ML VIAL PO ONE (23:00)
--- NOTE | 2021-02-21 23:28 | RAD ---
EXAMINATION: Chest radiograph. VIEWS: Single AP view of the chest COMPARISON: None INDICATION:40 years, Female, shortness of breath, cough. FINDINGS: Heart is borderline enlarged for technique. Slightly increased central indistinct pulmonary vasculatu re with bibasilar hazy opacities, a component of this likely represents soft tissue summation. No ple ural effusion or pneumothorax. No acute osseous process. IMPRESSION: Findings likely represent mild pulmonary edema, less likely infiltrates. Electronically signed by: Jose Manuel Torre DO (02/21/2021 11:26 PM) [facility]
[2021-02-21 23:57] LABS: INFLUENZA A PATIENT NEGATIVE (NEGATIVE); INFLUENZA B PATIENT NEGATIVE (NEGATIVE)
--- NOTE | 2021-02-22 00:33 | PHYS DOC ---
Past Medical History Past Medical History: Other Additional Past Medical Histor: Lymphedema Past Surgical History: No Surgical History Additional Past Surgical Histo: left ankle surgery x3, DNC x 2, Smoking Status: Current Some Day Smoker Alcohol Use: None Drug Use: None General Adult EDM: Chief Complaint: FLU SYMPTOM HPI: HPI: Patient is a 40 year old female who presents with congestion, productive cough, body aches and headache since this morning. Patient reports she took elderberry and Motrin for symptoms at home. Patient reports she felt she had some wheezing with her cough this morning but has improved. Denies fever, nausea/vomiting/ diarrhea. Patient denies recent exposure. Patient has history of hypertension, asthma, lymphedema. Patient is not vaccinated for COVID-19. Review of Systems: Review of Systems: ROS At least 10 ROS systems have been reviewed and are negative except as documented in the HPI. General: Negative except as outlined in HPI above. Skin: Negative except as outlined in HPI above. HEENT: Negative except as outlined in HPI above. Neck: Negative except as outlined in HPI above. Respiratory: Negative except as outlined in HPI above.. Cardiovascular: Negative except as outlined in HPI above. Abdomen: Negative except as outlined in HPI above. : Negative except as outlined in HPI above. Back/MSK: Negative except as outlined in HPI above. Neuro: Negative except as outlined in HPI above. Psych: Negative except as outlined in HPI above. Heart Score: C/O Chest Pain: No Risk Factors: Risk Factors: DM, Current or recent (<one month) smoker, HTN, HLP, family history of CAD, obesity. Risk Scores: Score 0 - 3: 2.5% MACE over next 6 weeks - Discharge Home Score 4 - 6: 20.3% MACE over next 6 weeks - Admit for Clinical Observation Score 7 - 10: 72.7% MACE over next 6 weeks - Early Invasive Strategies Current Medications: Current Medications Medications (Trade) Dose Ordered Sig/Uvaldo Start Time Stop Time Status Last Admin Dose Admin Albuterol/ Ipratropium (Duoneb) 3 ml 1X ONCE 02/21/21 22:45 02/21/21 22:46 DC 02/21/21 22:45 3 ML Dexamethasone Sodium Phosphate (Decadron) 10 mg 1X ONCE 02/21/21 23:00 02/21/21 23:01 DC 11/16/21 23:33 10 MG Allergies: Allergies: Allergies Coded Allergies Type Severity Reaction Last Updated Verified No Known Drug Allergies 04/05/15 No Physical Exam: PE: Constitutional: Well developed, well nourished, no acute distress, non-toxic appearance. [] HENT: Normocephalic, atraumatic, bilateral external ears normal, oropharynx moist, no oral exudates, nose normal. [] Eyes: PERRLA, EOMI, conjunctiva normal, no discharge. [] Neck: Normal range of motion, no tenderness, supple, no stridor. [] Cardiovascular:Heart rate regular rhythm, no murmur [] Lungs & Thorax: Bilateral breath sounds clear to auscultation, no wheezing Abdomen: Bowel sounds normal, soft, no tenderness, no masses, no pulsatile masses. [] Skin: Warm, dry, no erythema, no rash. [] Back: No tenderness, no CVA tenderness. [] Extremities: No tenderness, no cyanosis, no clubbing, ROM intact, no edema. [] Neurologic: Alert and oriented X 3, normal motor function, normal sensory function, no focal deficits noted. [] Psychologic: Affect normal, judgement normal, mood normal. [] Current Patient Data: Labs: Laboratory Tests Test 02/21/21 22:55 Influenza Type A Antigen Negative (NEGATIVE) Influenza Type B Antigen Negative (NEGATIVE) SARS-CoV-2 Antigen (Rapid) Negative (NEGATIVE) Vital Signs: Vital Signs Date Time Temp Pulse Resp B/P (MAP) Pulse Ox O2 Delivery O2 Flow Rate FiO2 02/21/21 23:36 98 Room Air 02/21/21 21:40 98.6 104 23 157/74 (101) 98.6 EKG: EKG: [] Radiology/Procedures: Radiology/Procedures: []EXAMINATION: Chest radiograph. VIEWS: Single AP view of the chest COMPARISON: None INDICATION:40 years, Female, shortness of breath, cough. FINDINGS: Heart is borderline enlarged for technique. Slightly increased central indistinct pulmonary vasculature with bibasilar hazy opacities, a component of this likely represents soft tissue summation. No pleural effusion or pneumothorax. No acute osseous process. IMPRESSION: Findings likely represent mild pulmonary edema, less likely infiltrates. Electronically signed by: Jose Manuel Torre DO (02/21/2021 11:26 PM) [facility] Course & Med Decision Making: Course & Med Decision Making Pertinent Labs and Imaging studies reviewed. (See chart for details) [] 40-year-old female presents with congestion, productive cough, body aches and headache. Patient was tested for Covid, flu. Patient was given dexamethasone. Patient reports that she has inhaler at home. Covid and flu test were both negative. Patient most likely has viral syndrome. Discussed results with patient. Discussed taking Mucinex DM to help with symptoms. Motrin and Tylenol for headache and fevers. Increase fluids. Patient should follow-up with her PCP in the next few days for further management. Discussed return precautions in length. Patient verbalized understanding. Patient is hemodynamically stable upon disposition. Dragon Disclaimer: [employer] Disclaimer: This electronic medical record was generated, in whole or in part, using a voice recognition dictation system. Departure Departure Impression: Primary Impression: Viral syndrome Disposition: HOME / SELF CARE / HOMELESS Condition: STABLE Referrals: HARMONY SAMUEL MD (PCP) Patient Instructions: Viral Syndrome Additional Instructions: You were seen in the emergency room for congestion, cough. We tested you for Covid and flu which were both were negative. He was likely have viral syndrome. Please take Mucinex DM [id number] to help with symptoms. Increase fluids. Follow-up with your PCP in the next few days if symptoms do not improve. Return to the emergency room if you have worsening symptoms or concerns. EMERGENCY DEPARTMENT GENERAL DISCHARGE INSTRUCTIONS Thank you for coming to [facility] Emergency Department (ED) today and trusting us with you care. We trust that you had a positive experience in our Emergency Department. If you wish to speak to the department management, you may call the Director at [phone]. YOUR FOLLOW UP INSTRUCTIONS ARE FOLLOWS: 1. Do you have a private Doctor? If you do not have a private doctor, please ask for a resource list of physicians or clinics that may be able to assist you with follo w up care. 2. The Emergency Physicain has interpreted your x-rays. The X-Ray specialist will also review them. If there is a change in the findings, you will be notified in 48 hours when at all possible. 3. A lab test or culture has been done, your results will be reviewed and you will be notified if you need a change in treatment. ADDITIONAL INSTRUCTIONS AND INFORMATION: 1. Your care today has been supervised by a physician who is specially trained in emergency care. Many problems require more than one evaluation for a complete diagnosis and treatment. We recommend that you schedule your follow up appointment as rec ommended to ensure complete treatment of you illness or injury. If you are unable to obtain follow up care and continue to have a problem, or if your condition worsens, we recommend that you return to the ED. 2. We are not able to safely determine your condition over the phone nor are we able to give sound medical advice over the phone. For these safety reasons, if you call for medical advice we will ask you to come to the ED for further evaluation. 3. If you have any questions regarding these discharge instructions please call the ED at [phone]. SAFETY INFORMATION: In the interest of safety, wellness, and injury prevention; we encourage you to wear your sealbelt, if you smoke; quite smoking, and we encourage family to use a protective helmet for bicycling and other sporting events that present an increased risk for head injury. IF YOUR SYMPTOMS WORSEN OR NEW SYMPTOMS DEVELOP, OR YOU HAVE CONCERNS ABOUT YOUR CONDITION; OR IF YOUR CONDITION WORSENS WHILE YOU ARE WAITING FOR YOUR FOLLOW UP APPOINTMENT; EITHER CONTACT YOUR PRIMARY CARE DOCTOR, THE PHYSICIAN WHOSE NAME AND NUMBER YOU WERE GIVEN, OR RETURN TO THE ED IMMEDIATELY. CHAMP WIGGINS APRN Feb 22, 2021 00:33
[2021-02-22 00:46] VITALS: BP 144/68
--- NOTE | 2021-02-22 17:17 | NUR ---
IP: Informed pt of negative covid test. Pt verbalized understanding.
== END 2021-02-22 01:10 | disposition home or self-care (01) ==
LOC: ER 20:44
DX: B34.9 Viral infection, unspecified (principal); Z20.822 Contact with and (suspected) exposure to COVID-19; F17.200 Nicotine dependence, unspecified, uncomplicated
CPT/HCPCS: 71045; 87426; 87804; 94640; 99285; J1100; U0003; U0005

== ENCOUNTER 2021-07-07 17:05 | Emergency (ER) | payer MEDICAID, OTHER ==
[~2021-07-07] VITALS: Ht 157.5 cm; Wt 195.4 kg
[2021-07-07] MEDS ORDERED: LIDOCAINE 1%/EPI 1:100,000 20 ML VIAL. INJ ONE (18:00)
--- NOTE | 2021-07-07 18:26 | PHYS DOC ---
Past Medical History Past Medical History: Other Additional Past Medical Histor: Lymphedema (ITALO CALDERÓN ASSET RECOVERY SPECIALIST) Past Surgical History: No Surgical History Additional Past Surgical Histo: left ankle surgery x3, DNC x 2, (ITALO CALDERÓN ASSET RECOVERY SPECIALIST) Smoking Status: Current Some Day Smoker Alcohol Use: None Drug Use: None (ITALO CALDERÓN ASSET RECOVERY SPECIALIST) General Adult EDM: Chief Complaint: LACERATION/AVULSION HPI: HPI: Patient is a 41 year old female who presents with has was at the store and bumped her left lower leg of which she has severe lymphedema and. This caused a 2 inch laceration to her skin due to the edema the leg popped open. She is leaking a large amount of fluid. There is no blood. Patient has a history of some day smoker, cellulitis, D&C, lymphedema. She stresses that infectious disease must come and see her and she does go to the lymphedema clinic here at the hospital. I have told patient that infectious disease does not usually come to the emergency room to do doctors visits. She insists that the infectious disease always come to see her in the emergency room and that she never goes to triage. She states that she cannot usually take p.o. antibiotics and must have home infusion antibiotics. Patient states she can call and make an appointment on Saturday if needed. Patient also wanted to speak to by emergency room supervising physician of which Dr. Childers went in and spoke with the patient and told her the same thing I had just spoken to her about. She agrees to p.o. antibiotics upon discharge and to follow-up on Saturday. Denies any pain at this time. (ITALO CALDERÓN ASSET RECOVERY SPECIALIST) Review of Systems: Review of Systems: Constitutional: Denies fever or chills. [] Eyes: Denies change in visual acuity. [] HENT: Denies nasal congestion or sore throat. [] Respiratory: Denies cough or shortness of breath. [] Cardiovascular: Denies chest pain or edema. [] GI: Denies abdominal pain, nausea, vomiting, bloody stools or diarrhea. [] : Denies dysuria. [] Musculoskeletal: Denies back pain or joint pain. [] Integument: Denies rash. + Left lower leg laceration repair (ITALO CALDERÓN ASSET RECOVERY SPECIALIST) Heart Score: C/O Chest Pain: No (STEPHANEITALO Brantley APRN) Current Medications: Current Medications Medications (Trade) Dose Ordered Sig/Uvaldo Start Time Stop Time Status Last Admin Dose Admin Lidocaine/ Epinephrine (LIDOCAINE 1%-EPI 1:100,000 Multi-Dose) 20 ml 1X ONCE 07/07/21 18:00 07/07/21 18:01 DC Tetracaine/ Epinephrine/ Lidocaine (Let (Kcdz-[id number]-Ihocv) Gel) 3 ml 1X ONCE 07/07/21 18:30 07/07/21 18:31 (STEPHANEITALO APRN) Allergies: Allergies: Allergies Coded Allergies Type Severity Reaction Last Updated Verified No Known Drug Allergies 07/07/21 No ([facility]) Physical Exam: PE: Constitutional: Well developed, well nourished, no acute distress, non-toxic appearance. [] HENT: Normocephalic, atraumatic, bilateral external ears normal, oropharynx m oist, no oral exudates, nose normal. [] Eyes: PERRLA, EOMI, conjunctiva normal, no discharge. [] Neck: Normal range of motion, no tenderness, supple, no stridor. [] Cardiovascular:Heart rate regular rhythm, no murmur [] Lungs & Thorax: Bilateral breath sounds clear to auscultation [] Abdomen: Bowel sounds normal, soft, no tenderness, no masses, no pulsatile masses. [] Skin: Warm, dry, no erythema, no rash. Left lower leg laceration. [] Back: No tenderness, no CVA tenderness. [] Extremities: No tenderness, no cyanosis, no clubbing, ROM intact, no edema. [] Neurologic: Alert and oriented X 3, normal motor function, normal sensory function, no focal deficits noted. [] Psychologic: Affect normal, judgement normal, mood normal. [] (ITALO CALDERÓN APRN) Current Patient Data: Vital Signs: Vital Signs Date Time Temp Pulse Resp B/P (MAP) Pulse Ox O2 Delivery O2 Flow Rate FiO2 07/07/21 17:20 98.3 98 16 152/74 (100) 98 Room Air 98.3 (ITALO CALDERÓN APRN) EKG: EKG: [] ([facility]) Radiology/Procedures: Radiology/Procedures: [] (ITALO CALDERÓN APRN) Course & Med Decision Making: Course & Med Decision Making Pertinent Labs and Imaging studies reviewed. (See chart for details) See HPI. Alert and oriented x4. Ambulatory steady gait. Skin pink warm and dry. Morbidly obese. Large lymphedema to the left lower leg of which now she has a left lateral leg laceration that 2 inches. There is fluid leaking from her leg but no blood. Slight bruising around the incision. Refill less than 2 seconds. Pedal pulse strong are present. Laceration repair Location: Left lower leg approximately 2 inches Local anesthesia: Lets and lidocaine with epinephrine Interrupted sutures/Internal sutures: 6 sutures Nerve/ligament/muscle damage: None Cleaning and irrigation: Copiously cleaned and flushed with Betadine and saline The appropriate timeout was taken. The area was prepped and draped in the usual sterile fashion. The wound was copiously irrigated with normal saline and chlorhexidine. Patient tolerated well without complication. Dressing was applied to the area follow-up education is given to observe for signs and symptoms of infection, bleeding and to follow-up promptly if these occur. Patient can return in 48 hours for a wound recheck. Sutures to be removed in 7 to 10 days. [] (ITALO CALDERÓN APRN) Dragon Disclaimer: Dragon Disclaimer: This electronic medical record was generated, in whole or in part, using a voice recognition dictation system. (ITALO CALDERÓN APRN) Departure Departure Impression: Primary Impression: Laceration Disposition: 01 HOME / SELF CARE / HOMELESS Condition: STABLE Referrals: HARMONY SAMUEL MD (PCP) GRAY TAYLOR MD Patient Instructions: Laceration Care, Adult Additional Instructions: Take your antibiotic as prescribed and with food. Call and follow-up with wound care or your infectious disease doctor. Keep the area clean and covered. Scripts Cephalexin (KEFLEX) 500 Mg Capsule 1 CAP PO QID, #40 CAP Prov: ITLAO CALDERÓN APRN 07/07/21 ITALO CALDERÓN APRN Jul 07, 2021 18:26 FLAKO CHILDERS DO Jul 07, 2021 19:12
[2021-07-07] MEDS ORDERED: LIDOCAINE/EPI/TETRACAINE TOPICAL GEL 3 ML. TP ONE (18:30)
[2021-07-07] MEDS ORDERED: CEPH500C PO (18:53)
== END 2021-07-07 19:01 | disposition home or self-care (01) ==
LOC: ER 17:05
DX: S81.812A Laceration without foreign body, left lower leg, initial encounter (principal); E66.01 Morbid (severe) obesity due to excess calories; Z68.45 Body mass index [BMI] 70 or greater, adult; F17.200 Nicotine dependence, unspecified, uncomplicated; Y28.8XXA Contact with other sharp object, undetermined intent, initial encounter; Y93.89 Activity, other specified; Y92.89 Other specified places as the place of occurrence of the external cause; Y99.8 Other external cause status
CPT/HCPCS: 12002; 99282; J3490